=== PATIENT | female | born 1965 | race Caucasian/White ===

== ENCOUNTER 2021-12-24 19:49 | Inpatient (IN) | payer BC, SELFPAY ==
[2021-12-24] VITALS (10 sets, daily range): BP systolic 73–175; BP diastolic 49–143; PULSE 75–111; RESP 16–22; TEMP 35.5–35.8; O2SAT 92–100
--- NOTE | 2021-12-24 19:55 | CT_ITS ---
STUDY: CT CERVICAL SPINE WITHOUT CONTRAST REASON FOR EXAM: Female, 56 years old. trauma RADIATION DOSAGE (If Supplied By Facility): CTDIvol = ( 24.23 ) mGy, DLP = ( 582.54 ) mGycm TECHNIQUE: High resolution transaxial imaging was performed without contrast material. Sagittal and coronal images were reconstructed. Individualized dose optimization techniques were used for this CT. COMPARISON: None FINDINGS: Normal craniovertebral junction. Normal anterior atlantoaxial articulation. Normal odontoid process. Decreased cervical lordosis. Normal vertebral bodies and posterior osseous elements. C2-3: Normal endplates. Normal disc height and morphology. Normal central canal and intervertebral neuroforamina. C3-4: Normal endplates. Normal disc height and morphology. Normal central canal and intervertebral neuroforamina. C4-5: Mild anterior endplate spurring. Normal disc height and morphology. Normal central canal and intervertebral neuroforamina. C5-6: Narrowed disc space and endplate spurring. Mild narrowing of the central canal and moderate to severe bilateral neuroforaminal stenosis secondary to bony hypertrophy C6-7: Narrowed disc space and endplate spurring. Mild narrowing of the central canal. Severe bilateral neuroforaminal stenosis secondary to bony hypertrophy. C7-T1: Normal endplates. Normal disc height and morphology. Normal central canal and intervertebral neuroforamina. Normal visualized soft tissue structures. CT/Spine Cervical without Contras IMPRESSION: Moderate spondylosis most severe at C5-6 and C6-7.. No acute fracture or other significant abnormality Electronically Signed: Asa Cordero MD at 22:05 EDT ,
--- NOTE | 2021-12-24 19:55 | EKG12_ITS ---
Test Reason : DYSRHYTHMIA Blood Pressure : / mmHG Vent. Rate : 088 BPM Atrial Rate : 088 BPM P-R Int : 170 ms QRS Dur : 110 ms QT Int : 382 ms P-R-T Axes : 060 059 049 degrees QTc Int : 462 ms Normal sinus rhythm Normal ECG Confirmed by JEFFERY TERAN, JESENIA ([id number]), index editor OLIVA SANTANA ([id number]) on 12/26/2021 10:04:07 AM Referred By: AILEEN Confirmed By:JESENIA GIL MD
--- NOTE | 2021-12-24 19:55 | CT_ITS ---
EXAMINATION : Head CT w/out contrast HISTORY : trauma COMPARISON : None. TECHNIQUE : Multiple contiguous axial images were obtained from the skull base to the vertex without intravenous contrast. A radiation dose optimization technique was used for this scan. FINDINGS : The ventricles and sulci are normal in size. There is no evidence for acute intracranial hemorrhage, mass effect, or midline shift. There is no extra-axial fluid collection. There is normal freire-white differentiation, without CT evidence of acute ischemia or infarct. The skull base and calvarium are unremarkable. The orbits are unremarkable. The paranasal sinuses are clear. The mastoid air cells are well-aerated. The soft tissues are unremarkable. CT/Brain/Head without Contrast IMPRESSION: No acute intracranial abnormality. Electronically Signed: Chidi Gonzalez MD at 20:46 EDT ,
[2021-12-24] MEDS: Rocuronium Bromide 50 MG/5 ML Vial IV (20:00)
[2021-12-24] MEDS: Etomidate 20 MG/10 ML Vial IV ×2 (20:00→20:59)
--- NOTE | 2021-12-24 20:07 | RAD_ITS ---
INDICATION: intubation EXAMINATION/TECHNIQUE: X-RAY - XR Chest 1 View COMPARISON: None. FINDINGS: LINES/DEVICES: Endotracheal tube 3 cm from the pinky. Enteric tube follows the expected course of the esophagus with the tip projecting cephalad in the fundus. Surgical clips overlie the left upper quadrant. Surgical clips in the gallbladder fossa region likely representing prior cholecystectomy. LUNGS: Mildly decreased lung volumes and secondary vascular crowding without definite pulmonary vascular congestion. There is some subtle increased attenuation in the left lower lobe suspected represent atelectasis. Alveolar filling process is not completely excluded. No nodule. No pneumothorax. No visible pleural effusion. MEDIASTINUM AND CARDIOVASCULAR STRUCTURES: Normal size and contour of the cardiomediastinal silhouette. No evidence of pulmonary vascular congestion. BONES AND SOFT TISSUES: No fracture or focal osseous lesion. RAD/Chest 1 View (Portable) IMPRESSION: 1. Endotracheal and enteric tubes as above. 2. Surgical clips left upper quadrant and gallbladder region. 3. Mildly decreased lung volumes with likely left lower lobe atelectasis. Alveolar filling process not completely excluded. Electronically Signed: Juan Carson DO at 21:20 EDT ,
--- NOTE | 2021-12-24 20:07 | RAD_ITS ---
INDICATION: trauma EXAMINATION/TECHNIQUE: X-RAY - XR Pelvis 1 or 2 Views COMPARISON: None. FINDINGS: PELVIC BONES: No displaced fracture, destructive or sclerotic lesions. Sacroiliac joints are notable for some asymmetric sclerosis on the left, inferiorly.. No widening of the pubic symphysis. HIPS: External rotation of the right hip with greater trochanter obscuring femoral neck visualization, most likely within normal limits. No displaced fracture seen in this frontal view. There are some degenerative endplate changes lower lumbar spine. SOFT TISSUES: No soft tissue swelling or gas. Rectal temperature probe. RAD/Pelvis 1 or 2 Views IMPRESSION: Suboptimal visualization right femoral neck. If there is clinical concern for right femoral neck fracture, repeat exam with internal rotation should be obtained. No other evidence of potential traumatic osseous injury. Asymmetric left sacroiliac joint subchondral sclerosis. Electronically Signed: Juan Carson DO at 21:23 EDT ,
[2021-12-24 20:17] LABS: Absolute Lymphocyte Count 4.94 X10^3/uL (0.83-4.51); Absolute Neutrophil Count 11.4 X10^3/uL (2.0-7.7); Basophil# 0.12 X10^3/uL; Basophil% 0.7 % (0-1); Eosinophil# 0.28 X10^3/uL; Eosinophils% 1.6 % (0-5); Hematocrit 41.5 % (37-47); Hemoglobin 14.4 g/dL (12.0-15.0); Lymphocyte # 4.94 X10^3/ul (0.83-4.51); Lymphocyte % 27.7 % (19-41); Mean Corp Hgb Conc 34.7 g/dL (32-36); Mean Corpuscular Hgb 31.3 pg (27.0-32.0); Mean Corpuscular Volume 90.2 fL (81-99); Mean Platelet Vol. 11.2 fl (6.2-12.0); Monocyte# 1.07 X10^3/uL; NRBC Flagged by Analyzer 0 % (0-5); Neutrophil # 11.35 X10^3/uL (2.7-7.7); Neutrophil % 63.5 % (47-70); POSITIVE MORPHOLOGY YES; Platelet Count 192 K/mm3 (150-450); RBC Distribution Width CV 13.2 % (11.6-14.6); RBC Distribution Width SD 43.4 fl (35.1-43.9); White Blood Count 17.9 K/mm3 (4.4-11.0)
[2021-12-24 20:18] LABS: Differential Indicated SCAN CRITERIA MET
[2021-12-24] MEDS: 0.9% Normal Saline 1,000 ML 150 ML IV (20:22)
[2021-12-24] MEDS: 0.9% Normal Saline 1,000 ML 1000 ML IV (20:22)
[2021-12-24 20:24] LABS: Bacteria 0 SEEN /hpf (None Seen); Color, Urine Yellow (Yellow); Glucose, Dipstick Normal (Normal); Ketone-Dipstick 5 mg/dl (Negative); Leukocyte Esterase-Dipstick Negative /ul (Negative); Mucous, Urine 0 SEEN /hpf (<or=2+); Nitrite-Dipstick Negative (Negative); Occult Blood-Urine 10 /ul (Negative); Protein-Dipstick Negative (Negative); Red Blood Cells-Urine 0 SEEN /hpf (0-5); Squamous Epithelial Cells - UA 0 SEEN /hpf (5-10); Urine Bilirubin Dipstick Negative (Negative); Urine Clarity Clear (Clear); Urine Urobilinogen Normal (Normal); White Blood Cells 0 SEEN /hpf (0-5)
[2021-12-24 20:26] LABS: Prothrombin Time (Protime)PT. 12.5 SECONDS (11.7-14.9)
[2021-12-24 20:27] LABS: Partial Thromboplast Time 27.4 Seconds (24.1-36.2)
--- NOTE | 2021-12-24 20:46 | EDS_ITS ---
HPI History of Present Illness Chief Complaint: Unresponsive Informant: EMS Narrative Narrative: 56-year-old female arriving by EMS. Reportedly the patient has been drinking alcohol today and fell off of her chair striking her head. She was unresponsive per EMS. They note that she has agonal breathing and is gagging. They note no external bleeding. [facility] Medical History Asthma COPD (chronic obstructive pulmonary disease) Macular degeneration Home Medications tiotropium bromide 1.25 mcg/actuation mist for inhalation (Spiriva Respimat) 2 puff inhalation DAILY 12/24/21 [History Last Taken Unknown] Allergy/AdvReac Type Severity Reaction Status Date / Time No Known Allergies Allergy Verified 12/24/21 20:26 Surgical History H/O rotator cuff surgery Social History Smoking Status: Current every day smoker tobacco type: cigarettes ROS ROS ED Review of Systems ROS Unobtainable: due to mental status EXAM Physical Exam Const Vital Signs: 12/24/21 19:50 12/24/21 19:55 12/24/21 20:32 Temperature 96.4 F L Temperature Source Temporal Pulse Rate 100 91 Respiratory Rate 22 H 19 H Respiratory Effort Normal Non-Labored Respiratory Depth Normal Respiratory Pattern Normal Blood Pressure 119/82 H Blood Pressure Mean 94 Pulse Ox 93 93 Oxygen Delivery Method Room Air Room Air Mechanical Ventilator Fraction of Inspired Oxygen (FIO2) 12/24/21 20:30 12/24/21 20:00 12/24/21 21:00 Temperature Temperature Source Pulse Rate 111 H 78 108 H Respiratory Rate 21 H 16 22 H Respiratory Effort Respiratory Depth Respiratory Pattern Normal Blood Pressure 175/143 H Blood Pressure Mean 153 Pulse Ox 92 96 100 Oxygen Delivery Method Mechanical Ventilator Mechanical Ventilator Fraction of Inspired Oxygen (FIO2) 30 12/24/21 22:00 12/24/21 22:21 12/24/21 22:26 Temperature Temperature Source Pulse Rate 92 78 76 Respiratory Rate 17 16 16 Respiratory Effort Respiratory Depth Respiratory Pattern Blood Pressure 100/63 73/49 L 74/50 L Blood Pressure Mean 75 57 58 Pulse Ox 97 94 95 Oxygen Delivery Method Mechanical Ventilator Mechanical Ventilator Mechanical Ventilator Fraction of Inspired Oxygen (FIO2) 50 Positive well nourished, well developed and obese General Appearance ED: well developed Nutritional Appearance: obese HEENT Reports normocephalic and moist mucous membranes HEENT Narrative: Patient has significant amount of secretions coming out of her mouth. She has upper dentures and only. Eyes PERRL and EOMs intact bilaterally Neck no lymphadenopathy, supple and no JVD Neck Narrative: C-collar placed Resp Resp Narrative: Patient has slow shallow breathing. Cardio regular rate, regular rhythm and no murmurs GI normal to inspection, nondistended, normoactive bowel sounds and non-tender Palpation: soft Back/Spine no CVA tenderness and normal ROM Extremity normal to inspection General Extremety ED: Negative for edema General Extremity: Negative for edema Neuro Sensorium / Orientation: other Patient is unresponsive to sternal rub but she does withdraw to a needlestick in the left arm. I do not appreciate a corneal reflex and there is minimal gag reflex. GCS is 6 Psych Mood & Affect: Negative for depressed or tearful Skin no rashes or lesions noted and no wounds MDM MDM MDM Narrative Medical decision making narrative: Because the patient's GCS is 6 she underwent RSI to protect the airway. Patient received etomidate and rocuronium. An 8 oh endotracheal tube was placed on the first attempt without any difficulty and secured into place at 22 cm. Patient was started on propofol. My impression of the chest x-ray is adequate placement of endotracheal tube and of OG tube. My rotation of the pelvis x-ray is no acute fracture. CT the brain was obtained and was neck hemorrhage or fracture. CT of the cervical spine was negative for fracture. We have been having significant difficulty finding the right combination of medications to keep her comfortable. I spoke with our supervisor front Dr. Green who is comfortable keeping the patient here I will speak with our hospitalist. Lab Data Attestation: I reviewed the patient's lab results. Labs: Laboratory Results - last 24 hr 12/24/21 12/24/21 12/24/21 20:01 20:01 20:01 WBC 17.9 H RBC 4.60 Hgb 14.4 Hct 41.5 MCV 90.2 MCH 31.3 MCHC 34.7 RDW Std Deviation 43.4 RDW Coeff of Dina 13.2 Plt Count 192 MPV 11.2 Immature Gran % (Auto) 0.500 Neut % (Auto) 63.5 Lymph % (Auto) 27.7 [place] % (Auto) 6.0 Eos % (Auto) 1.6 Baso % (Auto) 0.7 Absolute Neuts (auto) 11.4 H Absolute Lymphs (auto) 4.94 H Nucleated RBC % 0 Differential Comment SCANNED PT 12.5 INR 1.0 APTT 27.4 Sodium 139 Potassium 3.4 L Chloride 107 Carbon Dioxide 21.0 Anion Gap 11 BUN 13 Creatinine 0.72 Estim Creat Clear Calc 116.84 Est GFR (MDRD) Af Amer 108 Est GFR (MDRD) Non-Af 89 BUN/Creatinine Ratio 18.2 Glucose 145 H Calcium 8.4 L Total Bilirubin 0.50 AST 51 H ALT 56 Alkaline Phosphatase 132 H Troponin I High Sens 5 Total Protein 7.3 Albumin 3.6 Globulin 3.7 Albumin/Globulin Ratio 1.0 Lipase 104 Urine Color Urine Clarity Urine pH Ur Specific [place] Urine Protein Urine Glucose (UA) Urine Ketones Urine Occult Blood Urine Nitrite Urine Bilirubin Urine Urobilinogen Ur Leukocyte Esterase Urine RBC Urine WBC Ur Squamous Epith Cells Urine Bacteria Urine Mucus Urine Opiates Screen Urine Methadone Screen Ur Barbiturates Screen Ur Phencyclidine Scrn Ur Amphetamines Screen MDMA (Ecstasy) Screen U Benzodiazepines Scrn Urine Cocaine Screen U Cannabinoids Screen Ur Drug Screen Comment Ethyl Alcohol 12/24/21 12/24/21 12/24/21 20:01 20:17 20:17 WBC RBC Hgb Hct MCV MCH MCHC RDW Std Deviation RDW Coeff of Dina Plt Count MPV Immature Gran % (Auto) Neut % (Auto) Lymph % (Auto) [place] % (Auto) Eos % (Auto) Baso % (Auto) Absolute Neuts (auto) Absolute Lymphs (auto) Nucleated RBC % Differential Comment PT INR APTT Sodium Potassium Chloride Carbon Dioxide Anion Gap BUN Creatinine Estim Creat Clear Calc Est GFR (MDRD) Af Amer Est GFR (MDRD) Non-Af BUN/Creatinine Ratio Glucose Calcium Total Bilirubin AST ALT Alkaline Phosphatase Troponin I High Sens Total Protein Albumin Globulin Albumin/Globulin Ratio Lipase Urine Color Yellow Urine Clarity Clear Urine pH 6.0 Ur Specific [place] 1.020 Urine Protein Negative Urine Glucose (UA) Normal Urine Ketones 5 H Urine Occult Blood 10 H Urine Nitrite Negative Urine Bilirubin Negative Urine Urobilinogen Normal Ur Leukocyte Esterase Negative Urine RBC 0 SEEN Urine WBC 0 SEEN Ur Squamous Epith Cells 0 SEEN Urine Bacteria 0 SEEN Urine Mucus 0 SEEN Urine Opiates Screen NEGATIVE Urine Methadone Screen NEGATIVE Ur Barbiturates Screen NEGATIVE Ur Phencyclidine Scrn NEGATIVE Ur Amphetamines Screen NEGATIVE MDMA (Ecstasy) Screen NEGATIVE U Benzodiazepines Scrn NEGATIVE Urine Cocaine Screen NEGATIVE U Cannabinoids Screen NEGATIVE Ur Drug Screen Comment Ethyl Alcohol 296.0 ABG Data ABG results: ABG 12/24/21 21:42 Specimen Type ART Sample Site L Radial pH 7.23 L Bicarbonate Actual 19.7 L Total CO2 21 Base Excess -8 L O2 Saturation 94 L O2 % 30 ABG pCO2 46.7 H ABG pO2 86 Mc Test Positive Respiration Rate 16 O2 Delivery Device Adult Vent Vent Mode AC Tidal Volume 400 POC PEEP 5 Radiography Diagnostic Testing: Clinical Impression(s) from Imaging Studies Brain CT 12/24/21 19:55 IMPRESSION: No acute intracranial abnormality. Electronically Signed: Chidi Gonzalez MD at 20:46 EDT , Cervical Spine CT 12/24/21 19:55 IMPRESSION: Moderate spondylosis most severe at C5-6 and C6-7.. No acute fracture or other significant abnormality Electronically Signed: Asa Cordero MD at 22:05 EDT , Chest X-Ray 12/24/21 20:07 IMPRESSION: 1. Endotracheal and enteric tubes as above. 2. Surgical clips left upper quadrant and gallbladder region. 3. Mildly decreased lung volumes with likely left lower lobe atelectasis. Alveolar filling process not completely excluded. Electronically Signed: Juan Carson DO at 21:20 EDT , Pelvis X-Ray 12/24/21 20:07 IMPRESSION: Suboptimal visualization right femoral neck. If there is clinical concern for right femoral neck fracture, repeat exam with internal rotation should be obtained. No other evidence of potential traumatic osseous injury. Asymmetric left sacroiliac joint subchondral sclerosis. 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
[2021-12-24 20:50] LABS: AST(SGOT) 51 U/L (15-37); Alanine Aminotransfer ALT/SGPT 56 U/L (13-56); Albumin, Serum 3.6 g/dL (3.2-5.0); Alkaline Phosphatase 132 U/L (45-117); Anion Gap 11 (5-15); BUN 13 mg/dL (7-18); BUN/Creat Ratio 18.2 RATIO (10-20); Calcium,Total 8.4 mg/dL (8.5-10.1); Chloride 107 mmol/L (98-107); Creatinine, Serum 0.72 mg/dL (0.55-1.02); Differential Comment SCANNED; EST Glomerular Filtration Rate 89 mL/min (>60); Est Glom Filt Rate - Afr Amer 108 mL/min (>60); Estimated Creatinine Clearance 116.84 ml/min; Globulin 3.7 g/dL (2.2-4.2); Glucose 145 mg/dL (74-106); Lipase 104 U/L (73-393); Potassium 3.4 mmol/L (3.5-5.1); Protein, Total 7.3 g/dL (6.4-8.2); Sodium Level 139 mmol/L (136-145); Troponin-I HS 5 pg/mL (3.0-54.0)
[2021-12-24 20:53] LABS: Amphetamine Urine VISTA NEGATIVE (<1000 ng/mL); Barbiturate Urine VISTA NEGATIVE (< 200 ng/mL); Benzodiazepine Urine VISTA NEGATIVE (< 200 ng/mL); Cocaine Urine VISTA NEGATIVE (< 300 ng/mL); Ecstacy Urine VISTA NEGATIVE (< 500 ng/mL); Methadone Urine VISTA NEGATIVE (< 300 ng/mL); PCP Urine VISTA NEGATIVE (< 25 ng/mL); THC Urine VISTA NEGATIVE (< 50 ng/mL); Vista UDS pH Range 6
[2021-12-24] MEDS: Propofol 10MG/Ml 1,000 MG/100 ML Bottle 5.2 MG CONT INF (20:54)
[2021-12-24] MEDS: Propofol 200 MG/20 ML Vial 100 MG IV BOLUS (21:21)
[2021-12-24] MEDS: Propofol 200 MG/20 ML Vial 50 MG IV BOLUS ×2 (21:42→22:36)
[2021-12-24 21:45] LABS: Allen Test Positive; Base Excess -8 mmol/L (-2 to +2); Bicarbonate 19.7 mmol/L (22-26); Blood Gas Specimen Type ART; FI02 30; Mode AC; O2 Delivery Device Adult Vent; PEEP 5; PO2 86 mmHG (75-100); RR 16; SITE L Radial; SO2 94 % (95-99); Total Carbon Dioxide 21 mmol/L; Vt 400; pCO2 46.7 mmHg (35-45); pH 7.23 (7.35-7.45)
[2021-12-24] MEDS: Midazolam 5 MG/ML Syringe IV ×3 (21:58→23:36)
--- NOTE | 2021-12-24 22:40 | PCM.HP.STD ---
HPI - General General Date of Admission: 12/24/21 Date of Service: 12/24/21 Chief Complaint: Fall, unresponsive, agonal breathing and gagging after heavy alcohol drink on the day of admission HPI Narrative JACKELIN ABREU, is a 56 F with history of chronic alcohol use, smoker and COPD was brought to ED by EMS. Reportedly, Get at the green party of her son who turned 12 and she had heavy alcohol drinker. She had Beer, Chetan Blair, Jell-O drink cocktail at least 6 shots as per her friend at the bedside. After that she felt wobbly and then fell backward and hit her head on the chair and left shoulder. After that she got unresponsive, frothing at the mouth and difficulty breathing. As per the friend, she noted nikki vomiting or felt like aspiration. In the ED, she was found to have agonal breathing and gagging, unresponsive. Therefore she was immediately intubated on ventilator. No external bleeding, head laceration noticed. She has history of smoking currently half pack per day. She started smoking at the age of 10 about a pack per day. She also drinks daily about 1 beer after work. [facility] Medical History (Updated 12/24/21 @ 23:[address] Colin Espinosa MD) Asthma COPD (chronic obstructive pulmonary disease) Macular degeneration Home Medications tiotropium bromide 1.25 mcg/actuation mist for inhalation (Spiriva Respimat) 2 puff inhalation DAILY 12/24/21 [History Last Taken Unknown] Allergy/AdvReac Type Severity Reaction Status Date / Time No Known Allergies Allergy Verified 12/24/21 20:26 Surgical History H/O rotator cuff surgery Social History Smoking Status: Current every day smoker tobacco type: cigarettes ROS ROS Narrative Fall, unresponsive, currently intubated. 14 system ROS unobtainable as patient is intubated, ventilator, sedated. Vital Signs Vital Signs Vital Signs: 12/24/21 19:50 12/24/21 19:55 12/24/21 20:32 Temperature 96.4 F L Temperature Source Temporal Pulse Rate 100 91 Respiratory Rate 22 H 19 H Respiratory Effort Normal Non-Labored Respiratory Depth Normal Respiratory Pattern Normal Blood Pressure 119/82 H Blood Pressure Mean 94 Pulse Ox 93 93 Oxygen Delivery Method Room Air Room Air Mechanical Ventilator Fraction of Inspired Oxygen (FIO2) 12/24/21 20:30 12/24/21 20:00 12/24/21 21:00 Temperature Temperature Source Pulse Rate 111 H 78 108 H Respiratory Rate 21 H 16 22 H Respiratory Effort Respiratory Depth Respiratory Pattern Normal Blood Pressure 175/143 H Blood Pressure Mean 153 Pulse Ox 92 96 100 Oxygen Delivery Method Mechanical Ventilator Mechanical Ventilator Fraction of Inspired Oxygen (FIO2) 30 12/24/21 22:00 12/24/21 22:21 12/24/21 22:26 Temperature Temperature Source Pulse Rate 92 78 76 Respiratory Rate 17 16 16 Respiratory Effort Respiratory Depth Respiratory Pattern Blood Pressure 100/63 73/49 L 74/50 L Blood Pressure Mean 75 57 58 Pulse Ox 97 94 95 Oxygen Delivery Method Mechanical Ventilator Mechanical Ventilator Mechanical Ventilator Fraction of Inspired Oxygen (FIO2) 50 12/24/21 22:38 Temperature 95.9 F L Temperature Source Temporal Pulse Rate 84 Respiratory Rate 16 Respiratory Effort Respiratory Depth Respiratory Pattern Blood Pressure 135/68 H Blood Pressure Mean 90 Pulse Ox 92 Oxygen Delivery Method Mechanical Ventilator Fraction of Inspired Oxygen (FIO2) 30 Weight Weight: 191 lb 9.307 oz Body Mass Index (BMI) 0.0 Physical Exam Narrative General: Initially irritable but currently sedated HEENT: Atraumatic, PERRLA, EOMI, Normocephalic Oral: . ET tube, OG tube Neck: Supple, No JVD, Negative Carotid Bruits Lungs: Air entry diminished in bilateral lung bases. on ventilator, AC mode Cardiovascular: Sinus rhythm, Normal S1, Normal S2, No murmurs Abdomen: Bowel Sounds Present, Soft, Non Tender, Non-Distended : No renal angle tenderness. No suprapubic tenderness. Extremities: No edema, Capillary Refill Less than 3 Seconds Skin: No head laceration or major bruise found. Musculoskeletal: Tenderness could not be elicited as patient is sedated. Neurological: Detailed neuro exam unobtainable, patient sedated. Psych/Mental Status: Sedated. Chronic alcohol use and nicotine use. Results Lab / Micro Data Result Diagrams: 12/24/21 20:01 12/24/21 20:01 Labs: Laboratory Results - last 24 hr 12/24/21 20:01: WBC 17.9 H, RBC 4.60, Hgb 14.4, Hct 41.5, MCV 90.2, MCH 31.3, MCHC 34.7, RDW Std Deviation 43.4, RDW Coeff of Dina 13.2, Plt Count 192, MPV 11.2, Immature Gran % (Auto) 0.500, Neut % (Auto) 63.5, Lymph % (Auto) 27.7, [place] % (Auto) 6.0, Eos % (Auto) 1.6, Baso % (Auto) 0.7, Absolute Neuts (auto) 11.4 H, Absolute Lymphs (auto) 4.94 H, Nucleated RBC % 0, Differential Comment SCANNED 12/24/21 20:01: PT 12.5, INR 1.0, APTT 27.4 12/24/21 20:01: Sodium 139, Potassium 3.4 L, Chloride 107, Carbon Dioxide 21.0, Anion Gap 11, BUN 13, Creatinine 0.72, Estim Creat Clear Calc 116.84, Est GFR (MDRD) Af Amer 108, Est GFR (MDRD) Non-Af 89, BUN/Creatinine Ratio 18.2, Glucose 145 H, Calcium 8.4 L, Total Bilirubin 0.50, AST 51 H, ALT 56, Alkaline Phosphatase 132 H, Troponin I High Sens 5, Total Protein 7.3, Albumin 3.6, Globulin 3.7, Albumin/Globulin Ratio 1.0, Lipase 104 12/24/21 20:01: Ethyl Alcohol 296.0 12/24/21 20:01: Lactic Acid Cancelled 12/24/21 20:17: Urine Color Yellow, Urine Clarity Clear, Urine pH 6.0, Ur Specific [place] 1.020, Urine Protein Negative, Urine Glucose (UA) Normal, Urine Ketones 5 H, Urine Occult Blood 10 H, Urine Nitrite Negative, Urine Bilirubin Negative, Urine Urobilinogen Normal, Ur Leukocyte Esterase Negative, Urine RBC 0 SEEN, Urine WBC 0 SEEN, Ur Squamous Epith Cells 0 SEEN, Urine Bacteria 0 SEEN, Urine Mucus 0 SEEN 12/24/21 20:17: Urine Opiates Screen NEGATIVE, Urine Methadone Screen NEGATIVE, Ur Barbiturates Screen NEGATIVE, Ur Phencyclidine Scrn NEGATIVE, Ur Amphetamines Screen NEGATIVE, MDMA (Ecstasy) Screen NEGATIVE, U Benzodiazepines Scrn NEGATIVE, Urine Cocaine Screen NEGATIVE, U Cannabinoids Screen NEGATIVE, Ur Drug Screen Comment ABG Data ABG results: ABG 12/24/21 21:42 Specimen Type ART Sample Site L Radial pH 7.23 L Bicarbonate Actual 19.7 L Total CO2 21 Base Excess -8 L O2 Saturation 94 L O2 % 30 ABG pCO2 46.7 H ABG pO2 86 Mc Test Positive Respiration Rate 16 O2 Delivery Device Adult Vent Vent Mode AC Tidal Volume 400 POC PEEP [address] 12/24/21 19:55 IMPRESSION: No acute intracranial abnormality. Electronically Signed: Chidi Gonzalez MD at 20:46 EDT , Cervical Spine CT 12/24/21 19:55 IMPRESSION: Moderate spondylosis most severe at C5-6 and C6-7.. No acute fracture or other significant abnormality Electronically Signed: Asa Cordero MD at 22:05 EDT , Chest X-Ray 12/24/21 20:07 IMPRESSION: 1. Endotracheal and enteric tubes as above. 2. Surgical clips left upper quadrant and gallbladder region. 3. Mildly decreased lung volumes with likely left lower lobe atelectasis. Alveolar filling process not completely excluded. Electronically Signed: Juan Carson DO at 21:20 EDT , Pelvis X-Ray 12/24/21 20:07 IMPRESSION: Suboptimal visualization right femoral neck. If there is clinical concern for right femoral neck fracture, repeat exam with internal rotation should be obtained. No other evidence of potential traumatic osseous injury. Asymmetric left sacroiliac joint subchondral sclerosis. Electronically Signed: Juan Carson DO at 21:23 EDT , Assessment & Plan Assessment/Plan (1) Alcohol intoxication: PLAN: Plan This is 56-year-old female who is admitted for unresponsive episode after acute alcohol intoxication. 1. Acute encephalopathy with unresponsiveness, fall due to acute alcohol intoxication: Patient is being admitted in ICU. Currently on AC mode on ventilator. Electrical Contractor consulted. On IV fentanyl and propofol drip. Patient had hypotension due to Versed. Propofol drip was momentarily held, resumed when blood pressure recovered. Most recent blood pressure 135/68. On 30% FiO2. Chest x-ray individually reviewed, ET and OG tube in appropriate position. Mildly decreased lung volume, left lower lobe atelectasis. Twelve-lead EKG shows normal sinus rhythm, 88 bpm. QTc 462 ms 2. Fall with hitting head and left shoulder: CT brain does not show acute intracranial abnormality, cervical spine CT moderate and spondylosis, chronic most severe at C5-6 and C6-7, no acute fracture or significant abnormality. Pelvic x-ray shows no obvious traumatic injury or fracture. Left shoulder x-ray ordered. 3. Chronic alcohol use dependence, chronic nicotine use and dependence: Currently patient is intubated on propofol and fentanyl drip. After extubation, needs to be watched for CIWA protocol with Ativan. 4. COPD/asthma or asthmatic bronchitis: Patient on his Spiriva inhaler, and adherence could not be ascertained. Needs outpatient follow-up for PFT and optimization of inhaler 5. Macular degeneration: Needs outpatient ophthalmology follow-up DVT prophylaxis: Lovenox 40% daily. Discontinue if platelet count drops less than 50,000 or hemoglobin less than 8 g% CODE STATUS: Patient is already intubated. I talked to the patient's friend near the bedside. The patient does not have living will or advanced directive. After discussion of benefits/risks procedures involved with full code, DNR CC arrest and DNR CC, the patient's friend, she opted for full code. She wants all possible resuscitation including CPR. She is okay for artificial life support including intubation, tube feed, ventilator and/chest compression, central venous catheter, vasopressor and DC shock if needed Total time spent in [id number] encounter in discussion of advanced directive 16 minutes. Clinical Impression(s) from Imaging Studies Brain CT 12/24/21 19:55 IMPRESSION: No acute intracranial abnormality. Electronically Signed: Chidi Gonzalez MD at 20:46 EDT , Cervical Spine CT 12/24/21 19:55 IMPRESSION: Moderate spondylosis most severe at C5-6 and C6-7.. No acute fracture or other significant abnormality Electronically Signed: Asa Cordero MD at 22:05 EDT , Chest X-Ray 12/24/21 20:07 IMPRESSION: 1. Endotracheal and enteric tubes as above. 2. Surgical clips left upper quadrant and gallbladder region. 3. Mildly decreased lung volumes with likely left lower lobe atelectasis. Alveolar filling process not completely excluded. Electronically Signed: Juan Carson DO at 21:20 EDT , Pelvis X-Ray 12/24/21 20:07 IMPRESSION: Suboptimal visualization right femoral neck. If there is clinical concern for right femoral neck fracture, repeat exam with internal rotation should be obtained. No other evidence of potential traumatic osseous injury. Asymmetric left sacroiliac joint subchondral sclerosis. Electronically Signed: Juan Carson DO at 21:23 EDT , Charges/Coding Visit Charges Inpatient E&M: 67464 Init Hosp L3 Procedures Hospitalists Procedures: [id number] Advncd Care Plan 30 Min
--- NOTE | 2021-12-24 23:21 | RAD_ITS ---
INDICATION: fall and hit shoulder EXAMINATION/TECHNIQUE: X-RAY - LEFT XR Shoulder Min 2 Views 2 VIEWS COMPARISON: Chest x-ray from earlier the same day. FINDINGS: SOFT TISSUES: No soft tissue swelling or gas. No radiopaque foreign body. BONES/JOINTS: No acute fracture or malalignment. There are some degenerative changes left acromioclavicular joint. No sclerotic or destructive changes observed. RAD/Shoulder min 2 Views IMPRESSION: Mild degenerative changes left acromioclavicular joint. Otherwise within normal limits. Electronically Signed: Juan Carson DO at 0:08 EDT ,
[2021-12-24 23:57] LABS: Lactic Acid 2.1 mmol/L (0.4-1.9)
[2021-12-25] VITALS (46 sets, daily range): BP systolic 76–153; BP diastolic 44–87; PULSE 46–78; RESP 16–22; TEMP 36.6–38.9; O2SAT 93–99
[2021-12-25 00:47] LABS: Magnesium 2.2 mg/dL (1.6-2.6); Phosphorus 4.2 mg/dL (2.5-4.9)
[2021-12-25 02:50] LABS: Reflex Lactate? Y
[2021-12-25 04:41] LABS: Absolute Lymphocyte Count 3.88 X10^3/uL (0.83-4.51); Basophil# 0.06 X10^3/uL; Basophil% 0.5 % (0-1); Eosinophil# 0.08 X10^3/uL; Eosinophils% 0.6 % (0-5); Hematocrit 34.7 % (37-47); Hemoglobin 11.7 g/dL (12.0-15.0); Lymphocyte # 3.88 X10^3/ul (0.83-4.51); Mean Corp Hgb Conc 33.7 g/dL (32-36); Mean Platelet Vol. 10.8 fl (6.2-12.0); Monocyte# 0.85 X10^3/uL; Monocyte% 6.6 % (0-10); NRBC Flagged by Analyzer 0 % (0-5); Neutrophil % 61.9 % (47-70); Platelet Count 136 K/mm3 (150-450); RBC Distribution Width CV 13.6 % (11.6-14.6); Red Blood Count 3.77 M/mm3 (4.2-5.4); White Blood Count 12.9 K/mm3 (4.4-11.0)
[2021-12-25 04:46] LABS: M R Staph aureus DNA By PCR Negative (Negative); Probe Check PASS; Specimen Processing Control PASS
[2021-12-25 05:41] LABS: Anion Gap 8 (5-15); BUN 10 mg/dL (7-18); BUN/Creat Ratio 16.3 RATIO (10-20); Calcium,Total 7.1 mg/dL (8.5-10.1); Chloride 114 mmol/L (98-107); Creatinine, Serum 0.61 mg/dL (0.55-1.02); EST Glomerular Filtration Rate 106 mL/min (>60); Est Glom Filt Rate - Afr Amer 128 mL/min (>60); Estimated Creatinine Clearance 139.02 ml/min; Glucose 106 mg/dL (74-106); Potassium 3.5 mmol/L (3.5-5.1); Sodium Level 143 mmol/L (136-145); Thyroid Stim Hormone (TSH) 3.42 uIU/mL (0.358-3.74)
--- NOTE | 2021-12-25 05:42 | EX.PCM.CONCC ---
Assessment & Plan Assessment/Plan (1) Acute respiratory failure: (2) Alcohol intoxication: PLAN: Plan RECOMMENDATIONS: 1. Continue assist-control mode mechanical ventilation. Wean FiO2 to maintain saturations at or above 90%. 2. Obtain arterial blood gas this morning. 3. Continue Precedex and fentanyl for sedation. 4. Start scheduled bronchodilators. 5. Start Unasyn empirically pending sputum culture results. 6. Continue appropriate DVT and GI prophylaxis. 7. Begin paired spontaneous awakening and breathing trials tomorrow morning. IMPRESSIONS: 1. Acute combined respiratory failure The patient presented to the hospital after falling at a birthday libertarian and striking her head while heavily intoxicated. She apparently has a background of obstructive lung disease and chronic tobacco dependency. She had mild CO2 retention on her presenting ABG. CT imaging of her head was unremarkable. Toxicology screen was negative. Alcohol level was elevated at 296. The patient was intubated in the emergency department for airway protection. The patient is stable from a respiratory perspective. She will be continued on scheduled bronchodilators. The patient has been placed empirically on Unasyn, pending sputum culture results. Plan to begin paired spontaneous awakening and breathing trials beginning tomorrow. 2. Encephalopathy Most likely secondary to acute alcohol intoxication. Continue current supportive measures as noted above. 3. Chronic alcohol and tobacco dependency/COPD of unknown severity Complicates care, management, recovery and prognosis. Start scheduled bronchodilators today. Hold on tube feeds today, as the patient can likely be extubated tomorrow. TIME: 38 minutes of critical care time, independent of procedures, was spent addressing the patient's acute combined respiratory failure, encephalopathy, review of all data and collaboration with the care team. HPI Consult Data Date of Consult: 12/25/21 HPI Narrative Reason for Consultation: Acute respiratory failure HPI Narrative: The patient is a 56-year-old female, with a history as outlined below, who presented to the emergency department on December 24 in an unresponsive state after reportedly falling out of her chair in an intoxicated state and striking her head. Additional history pertinent to her hospitalization was obtained primarily via chart review, as the patient is currently intubated and sedated. The patient has a documented history of chronic alcohol dependency, chronic tobacco dependency and reported obstructive lung disease. On presentation to the emergency department the patient was noted to have a temperature of 96.4 ?F. She was otherwise hemodynamically stable. Initial laboratory evaluation revealed an elevated white blood cell count 18,000. Coagulation profile was within normal limits. Chemistry profile was notable for a potassium of 3.4. Lactate was elevated at 2.1. AST was increased to 51 with an alkaline phosphatase of 132. Urine analysis was unremarkable. Toxicology screen was negative. Alcohol level was noted to be 296. Due to the patient's unresponsive state at presentation, the patient underwent emergent intubation in the emergency department. CT head and C-spine was completed. No acute intracranial abnormality or fracture was identified. The patient was subsequently placed on supplemental IV fluids. She was admitted to the medical intensive care unit for further management. Overnight, the patient has been maintained on Precedex and fentanyl for sedation. When her sedation was weaned this morning, nursing staff did report that she was alert and able to follow some simple commands. [facility] Medical History (Updated 12/24/21 @ 23:[address] Colin Espinosa MD) Asthma COPD (chronic obstructive pulmonary disease) Macular degeneration Home Medications tiotropium bromide 1.25 mcg/actuation mist for inhalation (Spiriva Respimat) 2 puff inhalation DAILY 12/24/21 [History Last Taken Unknown] Allergy/AdvReac Type Severity Reaction Status Date / Time No Known Allergies Allergy Verified 12/24/21 20:26 Surgical History H/O rotator cuff surgery Social History Smoking Status: Current every day smoker tobacco type: cigarettes ROS Review of Systems ROS Unobtainable: due to endotracheal tube and due to mental status Physical Exam Const no apparent distress General Appearance: intubated and patient mechanically ventilated HEENT normocephalic and head/scalp atraumatic Mouth: endotracheal tube in place and OG tube in place Eyes PERRL and conjunctivae normal Neck supple General: trachea midline Chest inspection of chest normal Resp normal respiratory effort Auscultation: rhonchi and wheezes Cardio S1 normal heart sound and S2 normal heart sound Rate: bradycardia GI normal to inspection, nondistended, normoactive bowel sounds Extremity no clubbing, cyanosis or edema Skin no rashes or lesions noted Neuro Sensorium / Orientation: sedated on vent Lab / Micro Data Result Diagrams: 12/25/21 04:30 12/25/21 04:30 Labs: Laboratory Results - last 24 hr 12/24/21 20:01: WBC 17.9 H, RBC 4.60, Hgb 14.4, Hct 41.5, MCV 90.2, MCH 31.3, MCHC 34.7, RDW Std Deviation 43.4, RDW Coeff of Dina 13.2, Plt Count 192, MPV 11.2, Immature Gran % (Auto) 0.500, Neut % (Auto) 63.5, Lymph % (Auto) 27.7, [place] % (Auto) 6.0, Eos % (Auto) 1.6, Baso % (Auto) 0.7, Absolute Neuts (auto) 11.4 H, Absolute Lymphs (auto) 4.94 H, Nucleated RBC % 0, Differential Comment SCANNED 12/24/21 20:01: PT 12.5, INR 1.0, APTT 27.4 12/24/21 20:01: Sodium 139, Potassium 3.4 L, Chloride 107, Carbon Dioxide 21.0, Anion Gap 11, BUN 13, Creatinine 0.72, Estim Creat Clear Calc 116.84, Est GFR (MDRD) Af Amer 108, Est GFR (MDRD) Non-Af 89, BUN/Creatinine Ratio 18.2, Glucose 145 H, Calcium 8.4 L, Total Bilirubin 0.50, AST 51 H, ALT 56, Alkaline Phosphatase 132 H, Troponin I High Sens 5, Total Protein 7.3, Albumin 3.6, Globulin 3.7, Albumin/Globulin Ratio 1.0, Lipase 104 12/24/21 20:01: Ethyl Alcohol 296.0 12/24/21 20:01: Lactic Acid Cancelled 12/24/21 20:01: Phosphorus 4.2, Magnesium 2.2 12/24/21 20:17: Urine Color Yellow, Urine Clarity Clear, Urine pH 6.0, Ur Specific [place] 1.020, Urine Protein Negative, Urine Glucose (UA) Normal, Urine Ketones 5 H, Urine Occult Blood 10 H, Urine Nitrite Negative, Urine Bilirubin Negative, Urine Urobilinogen Normal, Ur Leukocyte Esterase Negative, Urine RBC 0 SEEN, Urine WBC 0 SEEN, Ur Squamous Epith Cells 0 SEEN, Urine Bacteria 0 SEEN, Urine Mucus 0 SEEN 12/24/21 20:17: Urine Opiates Screen NEGATIVE, Urine Methadone Screen NEGATIVE, Ur Barbiturates Screen NEGATIVE, Ur Phencyclidine Scrn NEGATIVE, Ur Amphetamines Screen NEGATIVE, MDMA (Ecstasy) Screen NEGATIVE, U Benzodiazepines Scrn NEGATIVE, Urine Cocaine Screen NEGATIVE, U Cannabinoids Screen NEGATIVE, Ur Drug Screen Comment 12/24/21 22:46: Lactic Acid 2.1 H* 12/25/21 00:43: MRSA (PCR) Negative 12/25/21 04:30: WBC 12.9 H, RBC 3.77 L, Hgb 11.7 L, Hct 34.7 L, MCV 92.0, MCH 31.0, MCHC 33.7, RDW Std Deviation 46.0 H, RDW Coeff of Dina 13.6, Plt Count 136 L, MPV 10.8, Immature Gran % (Auto) 0.400, Neut % (Auto) 61.9, Lymph % (Auto) 30.0, [place] % (Auto) 6.6, Eos % (Auto) 0.6, Baso % (Auto) 0.5, Absolute Neuts (auto) 8.0 H, Absolute Lymphs (auto) 3.88, Nucleated RBC % 0 12/25/21 04:30: Sodium 143, Potassium 3.5, Chloride 114 H, Carbon Dioxide 21.0, Anion Gap 8, BUN 10, Creatinine 0.61, Estim Creat Clear Calc 139.02, Est GFR (MDRD) Af Amer 128, Est GFR (MDRD) Non-Af 106, BUN/Creatinine Ratio 16.3, Glucose 106, Calcium 7.1 L, TSH 3.42 ABG Data ABG results: ABG 12/24/21 21:42 Specimen Type ART Sample Site L Radial pH 7.23 L Bicarbonate Actual 19.7 L Total CO2 21 Base Excess -8 L O2 Saturation 94 L O2 % 30 ABG pCO2 46.7 H ABG pO2 86 Mc Test Positive Respiration Rate 16 O2 Delivery Device Adult Vent Vent Mode AC Tidal Volume 400 POC PEEP [address] 12/24/21 19:55 IMPRESSION: No acute intracranial abnormality. Electronically Signed: Chidi Gonzalez MD at 20:46 EDT , Cervical Spine CT 12/24/21 19:55 IMPRESSION: Moderate spondylosis most severe at C5-6 and C6-7.. No acute fracture or other significant abnormality Electronically Signed: Asa Cordero MD at 22:05 EDT , Chest X-Ray 12/24/21 20:07 IMPRESSION: 1. Endotracheal and enteric tubes as above. 2. Surgical clips left upper quadrant and gallbladder region. 3. Mildly decreased lung volumes with likely left lower lobe atelectasis. Alveolar filling process not completely excluded. Electronically Signed: Juan Carson DO at 21:20 EDT , Pelvis X-Ray 12/24/21 20:07 IMPRESSION: Suboptimal visualization right femoral neck. If there is clinical concern for right femoral neck fracture, repeat exam with internal rotation should be obtained. No other evidence of potential traumatic osseous injury. Asymmetric left sacroiliac joint subchondral sclerosis. Electronically Signed: Juan Carson DO at 21:23 EDT , Shoulder X-Ray 12/24/21 23:21 IMPRESSION: Mild degenerative changes left acromioclavicular joint. Otherwise within normal limits. Electronically Signed: Juan Carson DO at 0:08 EDT , Charges/Coding Procedures Hospitalists Procedures: [id number] Critial Care 1st Hr
--- NOTE | 2021-12-25 06:34 | NURSING ---
Pt arrived to ICU around 0000. Per ED staff, pt was difficult to sedate and ultimately Fentanyl and Precedex were started before bringing pt to unit. This RN looked through admission orders and noticed Fentanyl gtt had been discontinued per hospitalist orders. Hospitalist (Dr. Espinosa) was notified at 0125 that pt was appropriately sedated on 100 of Fentanyl and 0.5 of Precedex, and clarification was needed for a new fentanyl order. Dr. Espinosa responded that the Fentanyl had been DC'd to which this RN replied asking if we could keep the Fentanyl order since the pt was finally sedated appropriately. No reply from hospitalist was given, so this RN kept Fentanyl gtt running at current rate of 100 in order to keep pt sedated in an appropriate manner. Dr. Green notified of situation upon arrival to unit and verbal orders were given to keep Fentanyl gtt running and new order was placed.
[2021-12-25] MEDS: Lactated Ringers 1,000 ML 100 ML IV (06:58)
[2021-12-25] MEDS: Ipratropium/Albuterol Sulfate 3 ML AMPUL.NEB INHALATION ×5 (09:00→22:55)
[2021-12-25 09:37] LABS: Base Excess -7 mmol/L (-2 to +2); Blood Gas Specimen Type ART; FI02 30; Mode AC/VC; O2 Delivery Device Adult Vent; PEEP 5; PO2 85 mmHG (75-100); RR 16; SITE R Brach; SO2 96 % (95-99); Total Carbon Dioxide 20 mmol/L; Vt 400; pCO2 35.6 mmHg (35-45); pH 7.33 (7.35-7.45)
[2021-12-25] MEDS: Acetaminophen 650 MG/20 ML UDC GT ×3 (09:52→22:46)
[2021-12-25] MEDS: Enoxaparin 40 MG/0.4 ML Syringe SC (09:58)
--- NOTE | 2021-12-25 10:27 | PCM.PN.HOSP ---
Subjective Subjective Patient was seen and examined today in ICU, I talked with critical care about her care. Patient was intubated after being brought into the emergency room unresponsive yesterday after drinking a large amount of alcohol at a constitution party. Patient fell off a chair and hit her head on a picnic table, work-up in the emergency room showed no intracranial pathology, at this time patient is lightly sedated and on the ventilator, she is able to respond by nodding her head and moving her hands. I talked to her who was in the room at the time my examination, she states that the patient does not take large amounts of alcohol on a daily basis. She does have a diagnosis of COPD however. Objective Data Objective Data Vital Signs: Vital Signs Temp Pulse Resp BP Pulse Ox O2 Del Method FiO2 98.7 F 47 L 16 94/55 L 99 Mechanical Ventilator 25 12/25/21 07:00 12/25/21 07:14 12/25/21 07:14 12/25/21 07:00 12/25/21 07:14 12/25/21 07:00 12/25/21 07:14 Oxygen Delivery Method Mechanical Ventilator Weight: 88.2 kg Body Mass Index (BMI) 0.0 Intake & Output: Intake and Output for Last 24 Hours 12/23/21 12/24/21 12/25/21 23:59 23:59 23:59 Intake Total 1033.10 / 1039.97 1174.93 / 1174.93 Output Total 325 / 325 Balance 1033.10 / 1039.97 849.93 / 849.93 Lab / Micro Data Result Diagrams: 12/25/21 04:30 12/25/21 04:30 Labs: Laboratory Results - last 24 hr 12/24/21 20:01: WBC 17.9 H, RBC 4.60, Hgb 14.4, Hct 41.5, MCV 90.2, MCH 31.3, MCHC 34.7, RDW Std Deviation 43.4, RDW Coeff of Dina 13.2, Plt Count 192, MPV 11.2, Immature Gran % (Auto) 0.500, Neut % (Auto) 63.5, Lymph % (Auto) 27.7, [place] % (Auto) 6.0, Eos % (Auto) 1.6, Baso % (Auto) 0.7, Absolute Neuts (auto) 11.4 H, Absolute Lymphs (auto) 4.94 H, Nucleated RBC % 0, Differential Comment SCANNED 12/24/21 20:01: PT 12.5, INR 1.0, APTT 27.4 12/24/21 20:01: Sodium 139, Potassium 3.4 L, Chloride 107, Carbon Dioxide 21.0, Anion Gap 11, BUN 13, Creatinine 0.72, Estim Creat Clear Calc 116.84, Est GFR (MDRD) Af Amer 108, Est GFR (MDRD) Non-Af 89, BUN/Creatinine Ratio 18.2, Glucose 145 H, Calcium 8.4 L, Total Bilirubin 0.50, AST 51 H, ALT 56, Alkaline Phosphatase 132 H, Troponin I High Sens 5, Total Protein 7.3, Albumin 3.6, Globulin 3.7, Albumin/Globulin Ratio 1.0, Lipase 104 12/24/21 20:01: Ethyl Alcohol 296.0 12/24/21 20:01: Lactic Acid Cancelled 12/24/21 20:01: Phosphorus 4.2, Magnesium 2.2 12/24/21 20:17: Urine Color Yellow, Urine Clarity Clear, Urine pH 6.0, Ur Specific [place] 1.020, Urine Protein Negative, Urine Glucose (UA) Normal, Urine Ketones 5 H, Urine Occult Blood 10 H, Urine Nitrite Negative, Urine Bilirubin Negative, Urine Urobilinogen Normal, Ur Leukocyte Esterase Negative, Urine RBC 0 SEEN, Urine WBC 0 SEEN, Ur Squamous Epith Cells 0 SEEN, Urine Bacteria 0 SEEN, Urine Mucus 0 SEEN 12/24/21 20:17: Urine Opiates Screen NEGATIVE, Urine Methadone Screen NEGATIVE, Ur Barbiturates Screen NEGATIVE, Ur Phencyclidine Scrn NEGATIVE, Ur Amphetamines Screen NEGATIVE, MDMA (Ecstasy) Screen NEGATIVE, U Benzodiazepines Scrn NEGATIVE, Urine Cocaine Screen NEGATIVE, U Cannabinoids Screen NEGATIVE, Ur Drug Screen Comment 12/24/21 22:46: Lactic Acid 2.1 H* 12/25/21 00:43: MRSA (PCR) Negative 12/25/21 04:30: WBC 12.9 H, RBC 3.77 L, Hgb 11.7 L, Hct 34.7 L, MCV 92.0, MCH 31.0, MCHC 33.7, RDW Std Deviation 46.0 H, RDW Coeff of Dina 13.6, Plt Count 136 L, MPV 10.8, Immature Gran % (Auto) 0.400, Neut % (Auto) 61.9, Lymph % (Auto) 30.0, [place] % (Auto) 6.6, Eos % (Auto) 0.6, Baso % (Auto) 0.5, Absolute Neuts (auto) 8.0 H, Absolute Lymphs (auto) 3.88, Nucleated RBC % 0 12/25/21 04:30: Sodium 143, Potassium 3.5, Chloride 114 H, Carbon Dioxide 21.0, Anion Gap 8, BUN 10, Creatinine 0.61, Estim Creat Clear Calc 139.02, Est GFR (MDRD) Af Amer 128, Est GFR (MDRD) Non-Af 106, BUN/Creatinine Ratio 16.3, Glucose 106, Calcium 7.1 L, TSH 3.42 ABG Data ABG results: ABG 12/24/21 12/25/21 21:42 07:21 Specimen Type ART ART Sample Site L Radial R Brach pH 7.23 L 7.33 L Bicarbonate Actual 19.7 L 19.0 L Total CO2 21 20 Base Excess -8 L -7 L O2 Saturation 94 L 96 O2 % 30 30 ABG pCO2 46.7 H 35.6 ABG pO2 86 85 Mc Test Positive Respiration Rate 16 16 O2 Delivery Device Adult Vent Adult Vent Vent Mode AC AC/VC Tidal Volume 400 400 POC PEEP 5 5 Radiography Diagnostic Testing: Radiology Impression Brain CT 12/24/21 19:55 IMPRESSION: No acute intracranial abnormality. Electronically Signed: Chidi Gonzalez MD at 20:46 EDT , Cervical Spine CT 12/24/21 19:55 IMPRESSION: Moderate spondylosis most severe at C5-6 and C6-7.. No acute fracture or other significant abnormality Electronically Signed: Asa Cordero MD at 22:05 EDT , Chest X-Ray 12/24/21 20:07 IMPRESSION: 1. Endotracheal and enteric tubes as above. 2. Surgical clips left upper quadrant and gallbladder region. 3. Mildly decreased lung volumes with likely left lower lobe atelectasis. Alveolar filling process not completely excluded. Electronically Signed: Juan Carson DO at 21:20 EDT , Pelvis X-Ray 12/24/21 20:07 IMPRESSION: Suboptimal visualization right femoral neck. If there is clinical concern for right femoral neck fracture, repeat exam with internal rotation should be obtained. No other evidence of potential traumatic osseous injury. Asymmetric left sacroiliac joint subchondral sclerosis. Electronically Signed: Juan Carson DO at 21:23 EDT , Shoulder X-Ray 12/24/21 23:21 IMPRESSION: Mild degenerative changes left acromioclavicular joint. Otherwise within normal limits. Electronically Signed: Juan Carson DO at 0:08 EDT , Physical Exam Const alert, oriented x3, no apparent distress and healthy appearing Constitutional Narrative: Patient is currently under light sedation, she does respond appropriately to commands General Appearance: cooperative, well kempt and well developed Orientation / Consciousness: awake HEENT normocephalic, head/scalp atraumatic and moist oral mucous membranes Eyes PERRL, EOMs intact bilaterally and conjunctivae normal Neck supple, no JVD, thyroid normal and no carotid bruits General: trachea midline Resp normal respiratory effort, no retractions, no use of accessory muscles and clear to auscultation bilaterally Auscultation: Negative for rales, rhonchi or wheezes Cardio regular rate, regular rhythm, S1 normal heart sound, S2 normal heart sound, no murmurs, no rub and no gallops GI normal to inspection, nondistended, normoactive bowel sounds, soft to palpation, non-tender and non-distended Extremity no clubbing, cyanosis or edema Skin no rashes or lesions noted General Skin Exam: no breakdown Neuro oriented x3, CN's II-XII intact bilaterally, moves all extremities, no focal motor deficits and no sensory deficits noted Neuro Narrative: Patient is lightly sedated and on the ventilator at this time Sensorium / Orientation: awake and alert Psych affect normal Psych Narrative: Patient is lightly sedated and on the ventilator, she is alert and responds appropriately to simple commands Assessment & Plan Assessment/Plan (1) Acute respiratory failure: PLAN: Plan 1. Acute combined respiratory failure secondary to alcohol intoxication-I talked with pulmonary medicine today, they feel that the patient should remain on the ventilator today and be possibly extubated tomorrow. I relayed this to the patient's and the patient today. #2 alcohol intoxication-according to the patient's , she does not intake alcohol on a daily basis, I think the possibility for alcoholic withdrawal is low, patient will be monitored #3 chronic obstructive pulmonary disease-patient will remain on aerosol treatments Charges/Coding Visit Charges Inpatient E&M: 94105 Subs Hosp L2
[2021-12-25] MEDS: 0.9% Normal Saline 1,000 ML 999 ML IV ×2 (14:22→15:41)
[2021-12-25] MEDS: 0.9% Normal Saline 1,000 ML 150 ML IV (15:44)
[2021-12-25] MEDS: 0.9% Saline Lock 10 ML Syringe IV (17:54)
[2021-12-25] MEDS: TITRATION PARAMETER CHANGE 1 EACH IV (22:25)
[2021-12-26] VITALS (31 sets, daily range): BP systolic 100–160; BP diastolic 58–109; PULSE 48–125; RESP 15–23; TEMP 37.1–39; O2SAT 93–99
[2021-12-26] MEDS: Ipratropium/Albuterol Sulfate 3 ML AMPUL.NEB INHALATION ×4 (03:06→19:14)
[2021-12-26 07:01] LABS: Allen Test Positive; Base Excess -5 mmol/L (-2 to +2); Bicarbonate 18.6 mmol/L (22-26); Blood Gas Specimen Type ART; FI02 30; Mode CPAP/PS; O2 Delivery Device ET Tube; PEEP 5; PO2 70 mmHG (75-100); PS 5; SITE R Radial; SO2 95 % (95-99); Total Carbon Dioxide 19 mmol/L; pCO2 26.8 mmHg (35-45); pH 7.45 (7.35-7.45)
[2021-12-26 07:21] LABS: Absolute Lymphocyte Count 1.87 X10^3/uL (0.83-4.51); Absolute Neutrophil Count 11.1 X10^3/uL (2.0-7.7); Basophil# 0.04 X10^3/uL; Basophil% 0.3 % (0-1); Eosinophils% 0.7 % (0-5); Hematocrit 35.9 % (37-47); Hemoglobin 11.9 g/dL (12.0-15.0); Lymphocyte # 1.87 X10^3/ul (0.83-4.51); Lymphocyte % 13.4 % (19-41); Mean Corp Hgb Conc 33.1 g/dL (32-36); Mean Corpuscular Hgb 30.9 pg (27.0-32.0); Mean Corpuscular Volume 93.2 fL (81-99); Mean Platelet Vol. 11.5 fl (6.2-12.0); Monocyte# 0.75 X10^3/uL; Monocyte% 5.4 % (0-10); NRBC Flagged by Analyzer 0 % (0-5); Neutrophil # 11.11 X10^3/uL (2.7-7.7); Neutrophil % 79.6 % (47-70); POSITIVE COUNT YES; RBC Distribution Width SD 47.4 fl (35.1-43.9); Red Blood Count 3.85 M/mm3 (4.2-5.4)
[2021-12-26 07:31] LABS: Anion Gap 6 (5-15); BUN 14 mg/dL (7-18); BUN/Creat Ratio 24.6 RATIO (10-20); Calcium,Total 8.1 mg/dL (8.5-10.1); Chloride 119 mmol/L (98-107); Creatinine, Serum 0.57 mg/dL (0.55-1.02); EST Glomerular Filtration Rate 116 mL/min (>60); Est Glom Filt Rate - Afr Amer 140 mL/min (>60); Estimated Creatinine Clearance 149.79 ml/min; Glucose 100 mg/dL (74-106); Magnesium 1.9 mg/dL (1.6-2.6); Phosphorus 2.1 mg/dL (2.5-4.9); Potassium 3.6 mmol/L (3.5-5.1); Sodium Level 145 mmol/L (136-145)
[2021-12-26] MEDS: Racepinephrine HCl 0.5 ML VIAL.NEB. INHALATION (07:35)
[2021-12-26] MEDS: 0.9% Normal Saline 1,000 ML 150 ML IV (07:38)
--- NOTE | 2021-12-26 07:40 | PN.CC_ITS ---
Assessment & Plan Assessment/Plan (1) Acute respiratory failure: (2) Alcohol intoxication: PLAN: Plan RECOMMENDATIONS: 1. Wean FiO2 to maintain saturations at or above 90%. Possible BiPAP with sleep 2. Racemic epinephrine this morning 3. Wean Precedex and discontinue fentanyl 4. Continue scheduled bronchodilators. 5. Continue Unasyn empirically pending sputum culture results. 6. Continue appropriate DVT and GI prophylaxis. 7. Bedside swallow evaluation with initiation of diet if possible IMPRESSIONS: 1. Acute combined respiratory failure The patient presented to the hospital after falling at a birthday green party and striking her head while heavily intoxicated. She apparently has a background of obstructive lung disease and chronic tobacco dependency. She had mild CO2 retention on her presenting ABG. CT imaging of her head was unremarkable. Toxicology screen was negative. Patient able to be extubated today. Some postextubation stridor noted. Racemic epinephrine was given. 2. Encephalopathy Appears to be improved most likely secondary to acute alcohol intoxication. Continue current supportive measures as noted above. 3. Chronic alcohol and tobacco dependency/COPD of unknown severity Complicates care, management, recovery and prognosis. Continue scheduled bronchodilators today. Bedside swallow evaluation done initiation of diet. Monitor for signs or symptoms of withdrawal TIME: 32 minutes of critical care time, independent of procedures, was spent addressing the patient's acute combined respiratory failure, encephalopathy, review of all data and collaboration with the care team. Subjective Subjective Patient did okay overnight. Patient was able to be taken off of Levophed following initiation of spontaneous breathing trial. Patient did have fever overnight, but no pressors were required. Patient was able to pass a spontaneous breathing trial and was subsequently extubated. Patient was noted to have a leak prior to extubation, but following extubation did have some stridor. Racemic epinephrine was given. Objective Data Objective Data Vital Signs: Vital Signs Temp Pulse Resp BP Pulse Ox O2 Del Method O2 Flow Rate 37.7 C H 59 L 15 124/66 H 96 Mechanical Ventilator 30 12/26/21 05:00 12/26/21 05:00 12/26/21 05:26 12/26/21 05:00 12/26/21 05:00 12/26/21 05:00 12/25/21 16:00 FiO2 30 12/26/21 05:00 Oxygen Flow Rate (L/min) 30 Oxygen Delivery Method Mechanical Ventilator Weight: 88.2 kg Body Mass Index (BMI) 0.0 Intake & Output: Intake and Output for Last 24 Hours 12/24/21 12/25/21 12/26/21 23:59 23:59 23:59 Intake Total 1033.10 / 1039.97 5667.25 / 5687.65 668.29 / 668.29 Output Total 1060 / 1260 420 / 420 Balance 1033.10 / 1039.97 4607.25 / 4427.65 248.29 / 248.29 Lab / Micro Data Attestation: I reviewed the patient's lab results. Result Diagrams: 12/25/21 04:30 12/26/21 07:00 Labs: Laboratory Results - last 24 hr 12/26/21 07:00: Sodium 145, Potassium 3.6, Chloride 119 H, Carbon Dioxide 20.0 L , Anion Gap 6, BUN 14, Creatinine 0.57, Estim Creat Clear Calc 149.79, Est GFR (MDRD) Af Amer 140, Est GFR (MDRD) Non-Af 116, BUN/Creatinine Ratio 24.6 H, Glucose 100, Calcium 8.1 L, Phosphorus 2.1 L, Magnesium 1.9 Micro: Microbiology 12/25/21 00:43 Sputum, Induced/Lukens Gram Stain - Final ABG Data ABG results: ABG 12/25/21 12/26/21 07:21 06:53 Specimen Type ART ART Sample Site R Brach R Radial pH 7.33 L 7.45 Bicarbonate Actual 19.0 L 18.6 L Total CO2 20 19 Base Excess -7 L -5 L O2 Saturation 96 95 O2 % 30 30 ABG pCO2 35.6 26.8 L ABG pO2 85 70 L Mc Test Positive Respiration Rate 16 O2 Delivery Device Adult Vent ET Tube Vent Mode AC/VC CPAP/PS Tidal Volume 400 POC PEEP 5 5 POC Pressure Suppt 5 Rhythm Strip Rhythm Strip: Sinus Rhythm Rate: 59 Physical Exam Const no apparent distress General Appearance: intubated and patient mechanically ventilated HEENT normocephalic and head/scalp atraumatic HEENT Narrative: Significant oral secretions noted during spontaneous breathing trial Mouth: endotracheal tube in place and OG tube in place Eyes PERRL and conjunctivae normal Eyes Narrative: Slight periorbital edema Neck supple General: trachea midline Chest inspection of chest normal Resp normal respiratory effort Auscultation: diminished lung sounds; Negative for rales, rhonchi or wheezes Cardio S1 normal heart sound, S2 normal heart sound, no murmurs, no rub and no gallops Rate: bradycardia GI normal to inspection, nondistended, normoactive bowel sounds Extremity no clubbing, cyanosis or edema Skin no rashes or lesions noted Neuro Sensorium / Orientation: sedated on vent Psych Mood & Affect: anxious Charges/Coding Procedures Hospitalists Procedures: 13599 Critial Care 1st Hr
[2021-12-26 07:58] LABS: Differential Indicated SCAN CRITERIA MET
[2021-12-26 07:59] LABS: Platelet Estimate MOD DEC (ADEQ)
[2021-12-26] MEDS: 0.9% Saline Lock 10 ML Syringe IV ×2 (08:13→09:29)
[2021-12-26] MEDS: DiphenhydrAMINE 50 MG/ML Syringe IV (09:29)
[2021-12-26] MEDS: Enoxaparin 40 MG/0.4 ML Syringe SC (10:15)
[2021-12-26] MEDS: levoFLOXacin IV 750 MG/150 ML BAG 100 MG IV (11:04)
--- NOTE | 2021-12-26 13:20 | CASEMGMT ---
JAMES HAGEN Face to Face with patient for initial transition planning/care coordination assessment. RN CM introduced self and role at [facility]. Patient lying in bed, alert and oriented, significant other at bedside. Patient willing to participate in assessment and is able to answer all questions appropriately. Care providers, pharmacy, and demographics verified. Patient wishes to discharge home, denies need for home health at this time. Patient states she has no further needs or concerns at this time. CM to follow for discharge planning needs that may arise. PCP: Carmencita Specialists: none Preferred Pharmacy: [facility], [place]; [facility] retail at discharge Insurance: HDF Prescription Benefit: yes Living Will/HPOA: none LNOK: significant other Living Arrangements: Patient lives with her significant other in a mobile home with 5 steps and railing to enter the home. Patient states she is independent Transportation: self, significant other DME/HHC: Patient states she has nebulizer at home. Patient denies previous HHC or SNF. Disposition Plan: Patient to discharge home with family support and follow-up plans in place. Will monitor for home oxygen at discharge. Cinthia CHASE, RN, CM
--- NOTE | 2021-12-26 15:13 | PCM.PN.HOSP ---
Subjective Subjective Patient was seen and examined today, she was extubated this morning but had an allergic reaction to the Unasyn she was being administered, patient confirms that she is allergic to Augmentin-this was not evident when she was admitted however. At this time, patient is not wearing any oxygen and her pulse ox at rest is 98%, she appears comfortable, she is not wheezing. I talked with her significant other who was present at the time of my examination. Also talked with critical care about her care today. Objective Data Objective Data Vital Signs: Vital Signs Temp Pulse Resp BP Pulse Ox O2 Del Method O2 Flow Rate 100.2 F H 91 15 109/87 H 96 Room Air 3 12/26/21 15:02 12/26/21 15:08 12/26/21 15:02 12/26/21 15:02 12/26/21 15:02 12/26/21 15:02 12/26/21 13:00 FiO2 30 12/26/21 06:00 Oxygen Flow Rate (L/min) 3 Oxygen Delivery Method Room Air Weight: 88.2 kg Body Mass Index (BMI) 0.0 Intake & Output: Intake and Output for Last 24 Hours 12/24/21 12/25/21 12/26/21 23:59 23:59 23:59 Intake Total 1033.10 / 1039.97 5667.25 / 5687.65 2405.30 / 2405.30 Output Total 1060 / 1260 2520 / 2520 Balance 1033.10 / 1039.97 4607.25 / 4427.65 -114.70 / -114.70 Lab / Micro Data Result Diagrams: 12/26/21 07:00 12/26/21 07:00 Labs: Laboratory Results - last 24 hr 12/26/21 07:00: WBC 14.0 H, RBC 3.85 L, Hgb 11.9 L, Hct 35.9 L, MCV 93.2, MCH 30.9, MCHC 33.1, RDW Std Deviation 47.4 H, RDW Coeff of Dina 14.0, Plt Count TNP, MPV 11.5, Immature Gran % (Auto) 0.600, Neut % (Auto) 79.6 H, Lymph % (Auto) 13.4 L, [place] % (Auto) 5.4, Eos % (Auto) 0.7, Baso % (Auto) 0.3, Absolute Neuts (auto) 11.1 H, Absolute Lymphs (auto) 1.87, Nucleated RBC % 0, Platelet Estimate MOD DEC 12/26/21 07:00: Sodium 145, Potassium 3.6, Chloride 119 H, Carbon Dioxide 20.0 L, Anion Gap 6, BUN 14, Creatinine 0.57, Estim Creat Clear Calc 149.79, Est GFR (MDRD) Af Amer 140, Est GFR (MDRD) Non-Af 116, BUN/Creatinine Ratio 24.6 H, Glucose 100, Calcium 8.1 L, Phosphorus 2.1 L, Magnesium 1.9 Micro: Microbiology 12/25/21 00:43 Sputum, Induced/Lukens Gram Stain - Final 12/25/21 00:43 Sputum, Induced/Lukens Respiratory Culture - Preliminary Appears to be normal respiratory crescencio. Further studies to follow. ABG Data ABG results: ABG 12/26/21 06:53 Specimen Type ART Sample Site R Radial pH 7.45 Bicarbonate Actual 18.6 L Total CO2 19 Base Excess -5 L O2 Saturation 95 O2 % 30 ABG pCO2 26.8 L ABG pO2 70 L Mc Test Positive O2 Delivery Device ET Tube Vent Mode CPAP/PS POC PEEP 5 POC Pressure Suppt 5 Rhythm Strip Rhythm Strip: Sinus Rhythm Rate: 59 Physical Exam Narrative General: Initially irritable but currently sedated HEENT: Atraumatic, PERRLA, EOMI, Normocephalic Oral: . ET tube, OG tube Neck: Supple, No JVD, Negative Carotid Bruits Lungs: Air entry diminished in bilateral lung bases. on ventilator, AC mode Cardiovascular: Sinus rhythm, Normal S1, Normal S2, No murmurs Abdomen: Bowel Sounds Present, Soft, Non Tender, Non-Distended : No renal angle tenderness. No suprapubic tenderness. Extremities: No edema, Capillary Refill Less than 3 Seconds Skin: No head laceration or major bruise found. Musculoskeletal: Tenderness could not be elicited as patient is sedated. Neurological: Detailed neuro exam unobtainable, patient sedated. Psych/Mental Status: Sedated. Chronic alcohol use and nicotine use. Const alert, oriented x3 and no apparent distress Constitutional Narrative: Patient is currently under light sedation, she does respond appropriately to commands General Appearance: cooperative, well kempt and well developed Orientation / Consciousness: awake, oriented to person, oriented to place and oriented to time HEENT normocephalic, head/scalp atraumatic and moist oral mucous membranes HEENT Narrative: Patient has reddening of her face and forehead Eyes PERRL, EOMs intact bilaterally and conjunctivae normal Neck supple, no JVD and thyroid normal General: trachea midline Resp normal respiratory effort, no retractions, no use of accessory muscles and clear to auscultation bilaterally Auscultation: Negative for rales, rhonchi or wheezes Cardio regular rate, regular rhythm, S1 normal heart sound, S2 normal heart sound, no murmurs, no rub and no gallops GI normal to inspection, nondistended, normoactive bowel sounds, soft to palpation, non-tender and non-distended Extremity no clubbing, cyanosis or edema Skin no rashes or lesions noted General Skin Exam: no breakdown Neuro oriented x3, CN's II-XII intact bilaterally, moves all extremities, no focal motor deficits and no sensory deficits noted Neuro Narrative: Patient is lightly sedated and on the ventilator at this time Sensorium / Orientation: awake, alert, oriented to person, oriented to place and oriented to time Speech: speech normal Psych affect normal Psych Narrative: Patient is lightly sedated and on the ventilator, she is alert and responds appropriately to simple commands Assessment & Plan Assessment/Plan (1) Acute respiratory failure: PLAN: Plan 1. Acute combined respiratory failure secondary to alcohol intoxication-again patient was extubated today, she appears stable at this point, she is not wearing oxygen and her pulse ox is 98%. Patient will remain in the ICU and be reevaluated tomorrow. #2 alcohol [id number] to the patient's , she does not intake alcohol on a daily basis, I think the possibility for alcoholic withdrawal is low, patient will be monitored #3 chronic obstructive pulmonary disease-patient will remain on aerosol treatments, patient admits to smoking at home despite her COPD diagnosis. I talked briefly about this with her. #4 allergic reaction to Unasyn-patient remains on Solu-Medrol, she was also given Benadryl this morning. Charges/Coding Visit Charges Inpatient E&M: 38640 Subs Hosp L2
--- NOTE | 2021-12-26 15:30 | NURSING ---
Catheter removed by this RN, patient tolerated well.
[2021-12-27] VITALS (10 sets, daily range): BP systolic 122–129; BP diastolic 62–68; PULSE 77–191; RESP 18; TEMP 36.7–36.9; O2SAT 94–96
[2021-12-27] MEDS: 0.9% Saline Lock 10 ML Syringe IV ×2 (00:19→06:13)
[2021-12-27 03:51] LABS: Absolute Lymphocyte Count 0.99 X10^3/uL (0.83-4.51); Absolute Neutrophil Count 17.1 X10^3/uL (2.0-7.7); Basophil# 0.03 X10^3/uL; Basophil% 0.2 % (0-1); Hematocrit 35.6 % (37-47); Hemoglobin 12.2 g/dL (12.0-15.0); Lymphocyte # 0.99 X10^3/ul (0.83-4.51); Lymphocyte % 5.2 % (19-41); Mean Corp Hgb Conc 34.3 g/dL (32-36); Mean Corpuscular Volume 90.6 fL (81-99); Mean Platelet Vol. 11.8 fl (6.2-12.0); Monocyte# 0.74 X10^3/uL; Monocyte% 3.9 % (0-10); NRBC Flagged by Analyzer 0 % (0-5); Neutrophil # 17.07 X10^3/uL (2.7-7.7); Neutrophil % 90.1 % (47-70); Platelet Count 145 K/mm3 (150-450); RBC Distribution Width CV 13.4 % (11.6-14.6); RBC Distribution Width SD 44.5 fl (35.1-43.9); Red Blood Count 3.93 M/mm3 (4.2-5.4); White Blood Count 18.9 K/mm3 (4.4-11.0)
[2021-12-27 04:05] LABS: ALB/GLOB Ratio 0.8 RATIO (0.9-2.4); AST(SGOT) 34 U/L (15-37); Alanine Aminotransfer ALT/SGPT 53 U/L (13-56); Albumin, Serum 2.9 g/dL (3.2-5.0); Alkaline Phosphatase 141 U/L (45-117); Anion Gap 7 (5-15); BUN 10 mg/dL (7-18); BUN/Creat Ratio 16.6 RATIO (10-20); Calcium,Total 8.8 mg/dL (8.5-10.1); Chloride 112 mmol/L (98-107); EST Glomerular Filtration Rate 108 mL/min (>60); Est Glom Filt Rate - Afr Amer 131 mL/min (>60); Globulin 3.5 g/dL (2.2-4.2); Glucose 135 mg/dL (74-106); Potassium 3.6 mmol/L (3.5-5.1); Protein, Total 6.4 g/dL (6.4-8.2); Sodium Level 142 mmol/L (136-145)
[2021-12-27 04:11] LABS: Magnesium 1.7 mg/dL (1.6-2.6)
[2021-12-27] MEDS: Potassium Chloride Oral Tablet 20 MEQ 40 MEQ PO (06:12)
--- NOTE | 2021-12-27 06:33 | PN.CC_ITS ---
Assessment & Plan Assessment/Plan (1) Acute respiratory failure: (2) Alcohol intoxication: PLAN: Plan RECOMMENDATIONS: 1. Walking oximetry 2. Continue steroids for another 24 hours 3. Complete 5 days of Levaquin therapy 4. Continue scheduled bronchodilators. 5. Penicillins listed as anaphylactic on allergies 6. Okay to leave the intensive care unit from my perspective IMPRESSIONS: 1. Acute combined respiratory failure The patient presented to the hospital after falling at a birthday green party and striking her head while heavily intoxicated. She apparently has a background of obstructive lung disease and chronic tobacco dependency. 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 She had mild CO2 retention on her p resenting ABG. CT imaging of her head was unremarkable. Toxicology screen was negative. Patient able to be extubated yesterday, but allergic reaction to Unasyn was noted. Patient still with some wheezing today. We will order a walking oximetry. Okay to leave the intensive care unit 2. Encephalopathy Resolved. Appears to be improved, most likely secondary to acute alcohol intoxication. Continue current supportive measures as noted above. 3. Chronic alcohol and tobacco dependency/COPD of unknown severity Complicates care, management, recovery and prognosis. Continue scheduled bronchodilators today. Outpatient work-up in the pulmonary office with optimization of bronchodilators would be indicated Subjective Subjective Patient did okay overnight. Patient did report poor sleep, but states this is normal for her when she is on steroids. Patient has been tolerating room air, but has been reporting more wheezing. Patient did admit that she refused an aerosol overnight and feels this may have been an issue. Patient's facial swe lling is much improved. Patient has tolerated p.o. diet. Patient states that she lives in a mobile home. Patient has been able to walk to the bathroom with little difficulty Objective Data Objective Data Vital Signs: Vital Signs Temp Pulse Resp BP Pulse Ox O2 Del Method O2 Flow Rate 36.9 C 191 H 18 122/62 H 96 Room Air 3 12/27/21 03:00 12/27/21 03:23 12/27/21 03:00 12/27/21 03:00 12/27/21 03:00 12/27/21 03:00 12/26/21 13:00 FiO2 30 12/26/21 06:00 Oxygen Flow Rate (L/min) 3 Oxygen Delivery Method Room Air Weight: 88 kg Body Mass Index (BMI) 0.0 Intake & Output: Intake and Output for Last 24 Hours 12/25/21 12/26/21 12/27/21 23:59 23:59 23:59 Intake Total 5667.25 / 5687.65 3160.30 / 3160.30 Output Total 1060 / 1260 3070 / 3070 Balance 4607.25 / 4427.65 90.30 / 90.30 Lab / Micro Data Attestation: I reviewed the patient's lab results. Result Diagrams: 12/27/21 02:50 12/27/21 02:50 Labs: Laboratory Results - last 24 hr 12/26/21 07:00: WBC 14.0 H, RBC 3.85 L, Hgb 11.9 L, Hct 35.9 L, MCV 93.2, MCH 30.9, MCHC 33.1, RDW Std Deviation 47.4 H, RDW Coeff of Dina 14.0, Plt Count TNP, MPV 11.5, Immature Gran % (Auto) 0.600, Neut % (Auto) 79.6 H, Lymph % (Auto) 13.4 L, [place] % (Auto) 5.4, Eos % (Auto) 0.7, Baso % (Auto) 0.3, Absolute Neuts (auto) 11.1 H, Absolute Lymphs (auto) 1.87, Nucleated RBC % 0, Platelet Estimate MOD DEC 12/26/21 07:00: Sodium 145, Potassium 3.6, Chloride 119 H, Carbon Dioxide 20.0 L , Anion Gap 6, BUN 14, Creatinine 0.57, Estim Creat Clear Calc 149.79, Est GFR (MDRD) Af Amer 140, Est GFR (MDRD) Non-Af 116, BUN/Creatinine Ratio 24.6 H, Glucose 100, Calcium 8.1 L, Phosphorus 2.1 L, Magnesium 1.9 12/27/21 02:50: WBC 18.9 H, RBC 3.93 L, Hgb 12.2, Hct 35.6 L, MCV 90.6, MCH 31.0, MCHC 34.3, RDW Std Deviation 44.5 H, RDW Coeff of Dina 13.4, Plt Count 145 L, MPV 11.8, Immature Gran % (Auto) 0.600, Neut % (Auto) 90.1 H, Lymph % (Auto) 5.2 L, [place] % (Auto) 3.9, Eos % (Auto) 0.0, Baso % (Auto) 0.2, Absolute Neuts (auto) 17.1 H, Absolute Lymphs (auto) 0.99, Nucleated RBC % 0 12/27/21 02:50: Sodium 142, Potassium 3.6, Chloride 112 H, Carbon Dioxide 23.0, Anion Gap 7, BUN 10, Creatinine 0.60, Estim Creat Clear Calc 142.30, Est GFR (MDRD) Af Amer 131, Est GFR (MDRD) Non-Af 108, BUN/Creatinine Ratio 16.6, Glucose 135 H, Calcium 8.8, Total Bilirubin 1.50 H, AST 34, ALT 53, Alkaline Phosphatase 141 H, Total Protein 6.4, Albumin 2.9 L, Globulin 3.5, Albumin/Globulin Ratio 0.8 L 12/27/21 02:50: Magnesium 1.7 Micro: Microbiology 12/25/21 00:43 Sputum, Induced/Lukens Gram Stain - Final 12/25/21 00:43 Sputum, Induced/Lukens Respiratory Culture - Preliminary Appears to be normal respiratory crescencio. Further studies to follow. ABG Data ABG results: ABG 12/26/21 06:53 Specimen Type ART Sample Site R Radial pH 7.45 Bicarbonate Actual 18.6 L Total CO2 19 Base Excess -5 L O2 Saturation 95 O2 % 30 ABG pCO2 26.8 L ABG pO2 70 L Mc Test Positive O2 Delivery Device ET Tube Vent Mode CPAP/PS POC PEEP 5 POC Pressure Suppt 5 Rhythm Strip Rhythm Strip: Sinus Rhythm Rate: 59 Physical Exam Const no apparent distress Constitutional Narrative: Facial swelling much improved compared to previous HEENT normocephalic and head/scalp atraumatic Eyes PERRL, EOMs intact bilaterally and conjunctivae normal Neck full ROM, no lymphadenopathy and supple General: trachea midline Chest inspection of chest normal Resp normal respiratory effort Auscultation: diminished lung sounds; Negative for rales, rhonchi or wheezes Cardio regular rate, regular rhythm, S1 normal heart sound, S2 normal heart sound, no murmurs, no rub and no gallops Cardio Narrative: Patient did have a period of SVT to 190 spontaneously overnight noted on telemetry. Patient with palpitations, but no other symptomatology GI normal to inspection, nondistended, normoactive bowel sounds Extremity no clubbing, cyanosis or edema Skin no rashes or lesions noted Neuro oriented x3, CN's II-XII intact bilaterally, moves all extremities and no focal motor deficits Psych cooperative and affect normal Charges/Coding Visit Charges Inpatient E&M: 48133 Subs Hosp L2
[2021-12-27] MEDS: Ipratropium/Albuterol Sulfate 3 ML AMPUL.NEB INHALATION ×2 (07:07→11:16)
[2021-12-27] MEDS: Pantoprazole Sodium 20 MG Tablet PO (08:54)
[2021-12-27] MEDS: levoFLOXacin 750 MG Tablet PO (08:54)
[2021-12-27] MEDS: Enoxaparin 40 MG/0.4 ML Syringe SC (08:55)
--- NOTE | 2021-12-27 13:10 | DCINST_ITS ---
Discharge Instructions Diet Discharge Diet: No restrictions Activity Discharge Activity: Return to Normal Activity Return to work on:: 01/03/22 Weight Bearing Status: Full weight bearing Follow Up Care Test Results: Test results from this visit will be discussed in further detail at your follow- up appointment, if applicable. Discharge Plan Admission Admit Date/Time: 12/24/21 22:19 Primary Reason for Your Visit: respiratory failure Attending Provider: Bonifacio Roque Primary Care Provider: Reta Tse Consulting Providers: Peter Oreilly ; Lei Green ; Joann Nuñez NP ; Colin Espinosa Discharge Orders/Prescriptions Prescriptions: New ipratropium-albuterol 0.5 mg-3 mg(2.5 mg base)/3 mL Solution For Nebulization 3 ml inhalation 4X/DAY Qty: 120 0RF albuterol sulfate 2.5 mg /3 mL (0.083 %) Solution For Nebulization 2.5 mg inhalation Q2H PRN PRN (Reason: SOB/Wheezing) Qty: 120 0RF levofloxacin 750 mg Tablet 750 mg PO DAILY@0600 Qty: 3 0RF Rx Instructions: start 12/28/21 prednisone 20 mg tablet 40 mg PO DAILY Qty: 10 0RF Rx Instructions: two once a day for 3 days, then one daily for three days, then 1/2 daily for two days, then stop Discontinued Spiriva Respimat 1.25 mcg/actuation Mist 2 puff INHALATION DAILY Referrals / Follow Up: Reta Tse DO [Primary Care Provider] - Disposition Disposition (needs filled in before D/C Order can be placed): Home, Self Care
--- NOTE | 2021-12-27 13:20 | PCM.DC.SUM ---
Providers Date of Admission: 12/24/21 Date of Discharge: 12/27/21 Primary Care Physician: Dr. Reta Tse, DO Consultations 12/25/21 00:11 Consult: Accredited Legal Secretary / Pulmonary Medicine Routine Consulting Provider: [facility] Reason for Consult: intubated. Ventilator EMERGENT Consult: No MD Notified: Yes Date Notified: 12/24/21 Time Notified: 23:23 Method of Notification: ED Physician Initiated Reason For Visit: ACUTE HYPOXIC RESP FAILURE/AMS Diagnosis Discharge Diagnosis (1) Acute respiratory failure: Status: Acute Code(s): J96.00 - Acute respiratory failure, unspecified whether with hypoxia or hypercapnia (2) Alcohol intoxication: Status: Acute Code(s): F10.929 - Alcohol use, unspecified with intoxication, unspecified Plan 1. Acute combined respiratory failure secondary to alcohol intoxication-again patient was extubated today, she appears stable at this point, she is not wearing oxygen and her pulse ox is 98%. Patient will remain in the ICU and be reevaluated tomorrow. #2 alcohol yyglnhovmlye-puqbkiki-[id number] to the patient's , she does not intake alcohol on a daily basis, I think the possibility for alcoholic withdrawal is low, patient will be monitored #3 chronic obstructive pulmonary disease-patient will remain on aerosol treatments, patient admits to smoking at home despite her COPD diagnosis. I talked briefly about this with her. #4 allergic reaction to Unasyn-patient remains on Solu-Medrol, she was also given Benadryl this morning. #5 morbid obesity Medications at Discharge Home Medications albuterol sulfate 2.5 mg/3 mL (0.083 %) solution for nebulization 2.5 mg (3 mL) inhalation Q2H PRN PRN SOB/Wheezing #120 mL 12/27/21 ipratropium 0.5 mg-albuterol 3 mg (2.5 mg base)/3 mL nebulization soln 3 ml inhalation 4X/DAY #120 mL 12/27/21 levofloxacin 750 mg tablet 750 mg PO DAILY@0600 #3 tabs 12/27/21 prednisone 20 mg tablet 40 mg PO DAILY #10 tabs 12/27/21 Hospital Course Operations None Procedures None Summary of Care Provided Minutes Spent on Discharge: 32 Hospital Course: This 56-year-old white female was seen in the emergency room at [facility] after being brought in by squad, she had been at a libertarian and was drinking alcohol, patient passed out and struck her head on a picnic table was brought in for evaluation. Due to the patient's altered mental status, patient was intubated for airway protection, head CT did not show any acute pathology, patient was admitted to ICU and was seen by critical care. She was placed on Unasyn due to concerns of aspiration, following day the patient had an allergic reaction to the Unasyn with swelling and redness of her face. She had been extubated and was placed on IV Solu-Medrol and IV Benadryl, patient did not have any respiratory embarrassment from the allergic reaction. On 12/27/2021, patient was seen and examined: On examination she appeared in good health and spirits, she does not appear to be in any distress. Vital signs as documented. Skin warm and dry and without overt rashes. Neck without JVD, thyroid appears normal, trachea is midline, neck is supple. Lungs clear, normal air movement was noted. Heart exam notable for regular rhythm, normal sounds and absence of murmurs, rubs or gallops. Abdomen unremarkable and without evidence of organomegaly, masses, or abdominal aortic enlargement, bowel sounds are present in all 4 quadrants, no abdominal tenderness was noted. Patient was morbidly obese. Extremities nonedematous, no cyanosis was noted, no clubbing was noted. Neuro: Cranial nerves II through XII are grossly intact, no focal motor deficits were noted, sensation to light touch and pinprick is intact, motor exam 5/5 throughout. Psych: Patient is alert and oriented x3, she does not appear anxious or depressed, she does not appear agitated. On , patient was seen and examined and felt to be stable for discharge home Weight / BMI Weight Weight: 88 kg Body Mass Index (BMI) 0.0 ABG / Lab / Microbiology Data Result Diagrams: 12/27/21 02:50 12/27/21 02:50 Laboratory: Laboratory Results - last 24 hr 12/27/21 02:50: WBC 18.9 H, RBC 3.93 L, Hgb 12.2, Hct 35.6 L, MCV 90.6, MCH 31.0, MCHC 34.3, RDW Std Deviation 44.5 H, RDW Coeff of Dina 13.4, Plt Count 145 L, MPV 11.8, Immature Gran % (Auto) 0.600, Neut % (Auto) 90.1 H, Lymph % (Auto) 5.2 L, [place] % (Auto) 3.9, Eos % (Auto) 0.0, Baso % (Auto) 0.2, Absolute Neuts (auto) 17.1 H, Absolute Lymphs (auto) 0.99, Nucleated RBC % 0 12/27/21 02:50: Sodium 142, Potassium 3.6, Chloride 112 H, Carbon Dioxide 23.0, Anion Gap 7, BUN 10, Creatinine 0.60, Estim Creat Clear Calc 142.30, Est GFR (MDRD) Af Amer 131, Est GFR (MDRD) Non-Af 108, BUN/Creatinine Ratio 16.6, Glucose 135 H, Calcium 8.8, Total Bilirubin 1.50 H, AST 34, ALT 53, Alkaline Phosphatase 141 H, Total Protein 6.4, Albumin 2.9 L, Globulin 3.5, Albumin/Globulin Ratio 0.8 L 12/27/21 02:50: Magnesium 1.7 Microbiology: Microbiology 12/25/21 00:43 Sputum, Induced/Lukens Gram Stain - Final 12/25/21 00:43 Sputum, Induced/Lukens Respiratory Culture - Preliminary D/C Instructions Discharge Diet: No restrictions Return to work on: 01/03/22 Weight Bearing Status: Full weight bearing Meaningful Use Info Meaningful Use Diagnoses (Choose all that apply): None applicable Discharge Plan Admission Admit Date/Time: 12/24/21 22:19 Primary Reason for Your Visit: respiratory failure Attending Provider: Bonifacio Roque Primary Care Provider: Reta Tse Consulting Providers: Peter Oreilly ; Lei Green ; Joann Nuñez CROWN PERFORATOR OPERATOR ; Colin Espinosa Discharge Orders/Prescriptions Prescriptions: New ipratropium-albuterol 0.5 mg-3 mg(2.5 mg base)/3 mL Solution For Nebulization 3 ml inhalation 4X/DAY Qty: 120 0RF albuterol sulfate 2.5 mg /3 mL (0.083 %) Solution For Nebulization 2.5 mg inhalation Q2H PRN PRN (Reason: SOB/Wheezing) Qty: 120 0RF levofloxacin 750 mg Tablet 750 mg PO DAILY@0600 Qty: 3 0RF Rx Instructions: start 12/28/21 prednisone 20 mg tablet 40 mg PO DAILY Qty: 10 0RF Rx Instructions: two once a day for 3 days, then one daily for three days, then 1/2 daily for two days, then stop Discontinued Spiriva Respimat 1.25 mcg/actuation Mist 2 puff INHALATION DAILY Referrals / Follow Up: Reta Tse DO [Primary Care Provider] - Disposition Disposition (needs filled in before D/C Order can be placed): Home, Self Care Charges/Coding Visit Charges Inpatient E&M: 38877 Disch Hosp
--- NOTE | 2021-12-27 13:40 | CASEMGMT ---
Patient is discharging home today. RN CM in to discuss needs at discharge. Patient denies needs at this time. Patient advised to follow-up with PCP for any questions or concerns. Patient voiced understanding.
== END 2021-12-27 13:30 | disposition home or self-care (01) | DRG 208 ==
LOC: ED 20:50 → ICU 23:02
PROVIDERS: Hospitalist; Internal Medicine Critical Care Medicine; Admitting Provider Internal Medicine; Emergency Provider Emergency Medicine; PCP Internal Medicine; Visit Provider Internal Medicine
DX: J96.01 Acute respiratory failure with hypoxia (principal); S06.0X9A Concussion with loss of consciousness of unspecified duration, initial encounter; E87.1 Hypo-osmolality and hyponatremia; Z68.41 Body mass index [BMI] 40.0-44.9, adult; J44.9 Chronic obstructive pulmonary disease, unspecified; G31.2 Degeneration of nervous system due to alcohol; J96.02 Acute respiratory failure with hypercapnia; E66.01 Morbid (severe) obesity due to excess calories; F10.929 Alcohol use, unspecified with intoxication, unspecified; F17.210 Nicotine dependence, cigarettes, uncomplicated; W07.XXXA Fall from chair, initial encounter; H35.30 Unspecified macular degeneration; I95.2 Hypotension due to drugs; R22.0 Localized swelling, mass and lump, head; T42.75XA Adverse effect of unspecified antiepileptic and sedative-hypnotic drugs, initial encounter; T36.0X5A Adverse effect of penicillins, initial encounter; Y92.239 Unspecified place in hospital as the place of occurrence of the external cause
CPT/HCPCS: 31500; 31720; 36415; 36600; 51702; 70450; 71045; 72125; 72170; 73030; 80048; 80053; 80307; 81001; 82077; 82803; 83605; 83690; 83735; 84100; 84443; 84484; 85025; 85610; 85730; 87040; 87070; 87205; 87641; 93005; 94002; 94003; 94640; 94660; 97162; 97802; 97803; 99251; 99285; 99406; J7030; J7050; J7120; A4216; G0463; J0295; J3010

== ENCOUNTER → 2022-01-06 | Outpatient (CLI) | payer BC, SELFPAY ==
--- NOTE | 2022-01-06 13:24 | CT_ITS ---
STUDY: LOW DOSE CT LUNG CANCER SCREENING REASON FOR EXAM: Female, 56 years old. Smoker and gt;40 pack years RADIATION DOSAGE (If Supplied By Facility): CTDIvol = ( 2.39 ) mGy, DLP = ( 67.59 ) mGycm TECHNIQUE: No contrast was administered. Low dose technique was utilized (average mAS-38 and kVp 120). 1.25 mm axial source images with a slice interval of 1.25-mm were reconstructed in lung windows. 2.5 mm axial source images with a slice interval of 2.5-mm were reconstructed in lung windows. 5.0 mm axial source images with a slice interval of 5.0-mm were reconstructed in soft tissue windows. COMPARISON: None. NODULES: No suspicious nodules are seen. Emphysema: No significant emphysematous changes. Endobronchial lesion: None Aorta: Atherosclerotic plaques of the aortic arch. CORONARY ARTERIES: Coronary artery calcification is seen. Heart: Unremarkable Pulmonary artery: Unremarkable Mediastinal nodes: Small mediastinal lymph nodes. Other chest and abdominal findings: CT/Low Dose CT Lung Screening IMPRESSION: Lung-RADS category 2 - Continue annual screening with LDCT in 12 months. IMPORTANT NOTES FOR USE: ACR Lung-RADS Version 1.1 Assessment Categories Release Date: 2018 Category: Coded 0-4 bases on nodule(s) with highest degree of suspicion. Negative screen is defined as categories 1 and 2; a positive screen is defined as categories 3 and 4. Category 3 and 4A nodules that are unchanged on interval CT should be coded as category 2, and individuals returned to screening in 12 months. Category 4X: Category 3 or 4 nodules with additional imaging findings that increase the suspicion of lung cancer, such as spiculation, GGN that doubles in size in 1 year, enlarged lymph notes, etc. Category Modifiers: S (significant finding unrelated to lung cancer) Electronically Signed: Jimmie Ventura MD at 15:04 EDT ,
== END | disposition home or self-care (01) ==
LOC: CT 13:23
PROVIDERS: PCP Internal Medicine; Referring Provider Nurse Practitioner Acute Care; Visit Provider Nurse Practitioner Acute Care
DX: J44.9 Chronic obstructive pulmonary disease, unspecified (principal); F17.200 Nicotine dependence, unspecified, uncomplicated
CPT/HCPCS: 71271

== ENCOUNTER → 2022-02-07 | Outpatient (CLI) | payer BC, SELFPAY ==
--- NOTE | 2022-02-07 15:54 | PFTCOMP_ITS ---
COMPLETE PULMONARY FUNCTION TEST INTERPRETATION Brief HPI: Patient is a 56-year-old female, currently under the care of Joann Nuñez, who presents to [facility] for complete pulmonary function tests secondary to diagnosis of dyspnea. Respiratory therapist reports good effort and reproducible results. Interpretation: Forced expiration spirometry shows a mild large airways obstructive ventilatory defect with an FEV1 of 97% predicted. There is a significant bronchodilator response in FEV1 by strict ATS criteria. Spirograms are of good quality and plateau slowly, indicating slowly emptying areas of the lungs. The respiratory flow volume loop shows decreased expiratory flow rates at high lung volumes consistent with small airways obstruction. Lung volumes by body plethysmography show a normal total lung capacity at 4.32 L, 105% predicted. All other lung volumes are within normal limits. Diffusion capacity by carbon monoxide is at the lower limit of normal at 69% predicted. The airway resistance is normal. No previous pulmonary function tests were available for review. Impression: Fully reversible mild large airways obstructive ventilatory defect with a disproportionate reduction in diffusion capacity
== END | disposition home or self-care (01) ==
LOC: PSN 10:56
PROVIDERS: PCP Internal Medicine; Referring Provider Nurse Practitioner Acute Care; Visit Provider Nurse Practitioner Acute Care
DX: J44.9 Chronic obstructive pulmonary disease, unspecified (principal)
CPT/HCPCS: 94060; 94726; 94729

== ENCOUNTER → 2022-02-10 | Outpatient (CLI) | payer BC, SELFPAY ==
[2022-02-10 14:27] VITALS: PULSE 103; PULSE 104; PULSE 105; PULSE 106; PULSE 83; PULSE 89; O2SAT 97; O2SAT 98; O2SAT 99
--- NOTE | 2022-02-10 14:32 | CPS ---
Had to rest at 420 to 514 into the test no change in SPO2.
--- NOTE | 2022-02-13 05:44 | PCM.PSN.6M ---
PSN 6 Minute Walk Test 6 Minute Walk Test 6 Minute Walk Test: 6 Minute Walk Test PSN:6-Minute Walk Test Start: 02/10/22 14:26 Freq: Status: Active Protocol: [id number] Document 02/10/22 14:27 FR (Rec: 02/10/22 14:32 FR [id number]) 6 Minute Walk Test Date Performed 02/10/22 Time Performed 12:30 Height 5 ft Weight: 82.554 kg Weight in Pounds 182.[address]: Savannah/Yefri Assistive device used: None Pre-test Oxygen Delivery Method Room Air Pulse Ox (%) 98 Pulse Rate (60-100 beats/min) 83 Dyspnea [place] Scale (0-10) 4 Exertion [place] Scale (6-20) 12 1st minute Oxygen Delivery Method Room Air Pulse Ox (%) 99 Pulse Rate (60-100 beats/min) 103 H 2nd minute Oxygen Delivery Method Room Air Pulse Ox (%) 98 Pulse Rate (60-100 beats/min) 106 H 3rd minute Oxygen Delivery Method Room Air Pulse Ox (%) 99 Pulse Rate (60-100 beats/min) 105 H 4th minute Oxygen Delivery Method Room Air Pulse Ox (%) 99 Pulse Rate (60-100 beats/min) 104 H 5th minute Oxygen Delivery Method Room Air Pulse Ox (%) 98 Pulse Rate (60-100 beats/min) 104 H Number of Rests Taken 1 Reported Symptoms Increased Work of Breathing 6th minute Pulse Ox (%) 98 Pulse Rate (60-100 beats/min) 103 H Dyspnea [place] Scale (0-10) 7 Exertion [place] Scale (6-20) 14 Reported Symptoms Increased Work of Breathing Post-test Oxygen Delivery Method Room Air Pulse Ox (%) 97 Pulse Rate (60-100 beats/min) 89 Full Laps Walked 15 Partial Lap, Number of Tiles Walked 28 Total Distance Walked (ft) 913 02/10/22 14:32 Cardiopulmonary Services by Jaymie Ibrahim Had to rest at 420 to 514 into the test no change in SPO2. Initialized on 02/10/22 14:32 - END OF NOTE Interpretation Interpretation: Patient was able to ambulate 913 feet over the course of 6 minutes on room air with no assistive devices and 1 break. The patient had no significant desaturation, but did have persistent tachycardia throughout testing with a peak heart rate of 106 bpm. These findings are consistent with deconditioning. Recommendations Recommendations: No supplemental oxygen is indicated at this time.
== END | disposition home or self-care (01) ==
LOC: PSN 12:30
PROVIDERS: PCP Internal Medicine; Referring Provider Nurse Practitioner Acute Care; Visit Provider Nurse Practitioner Acute Care
DX: J44.9 Chronic obstructive pulmonary disease, unspecified (principal)
CPT/HCPCS: 94618

== ENCOUNTER → 2022-02-16 | Outpatient (CLI) | payer BC, SELFPAY | END | disposition home or self-care (01) | LOC: SL 21:55 | PROVIDERS: PCP Internal Medicine; Referring Provider Nurse Practitioner Acute Care; Visit Provider Nurse Practitioner Acute Care | DX: G47.10 Hypersomnia, unspecified (principal) | CPT/HCPCS: 95810 ==

== ENCOUNTER 2022-04-03 10:00 | Outpatient (CLI) | payer BC, SELFPAY | END 2022-04-03 23:59 | disposition home or self-care (01) | LOC: SL 12:34 | PROVIDERS: PCP Internal Medicine; Visit Provider Nurse Practitioner Acute Care | DX: G47.33 Obstructive sleep apnea (adult) (pediatric) (principal) ==